=== PATIENT | female | born 1980 | race Caucasian/White ===

== ENCOUNTER 2019-07-05 15:53 | Outpatient (REF) | payer MEDICARE, MEDICAID, SELFPAY ==
--- NOTE | 2019-07-05 14:35 | PAPFT_PTH ---
PATIENT: Birdie Cintron LOC: [facility] U#:[id number] AGE/SX: 38/F ROOM: RE07/05/[address]: Bud Vásquez MD : 1980 BED: DIS: 07/05/2019 SPEC #: [id number] RECD: 07/05/19 17:55 STATUS: FOREIGN REAnson #: [id number] BETO: 07/05/19 14:[address]: Bud Vásquez DEPT: [facility] Cytology RECD BY: Sarah Cortes ENTERED: 07/05/19 17:56 SP TYPE: PAPFT OTHR DR: Marce Rankin Tissues: 1 - CX/ENDOCX FOR PAP SMEARS Procedures: PAP THIN PREP/UVM Screening HPV DNA PROBE Comments: [id number]
== END 2019-07-05 16:13 ==
LOC: LBN 15:53
PROVIDERS: PCP Family Medicine; Visit Provider Obstetrics & Gynecology
DX: Z12.4 Encounter for screening for malignant neoplasm of cervix (principal); Z11.51 Encounter for screening for human papillomavirus (HPV)
CPT/HCPCS: 88142; 87624

== ENCOUNTER 2020-09-07 10:56 | Emergency (ER) | payer MEDICARE, MEDICAID, SELFPAY ==
[2020-09-07] VITALS (14 sets, daily range): BP systolic 140–145; BP diastolic 86–93; PULSE 72–92; RESP 13–22; TEMP 36.6; O2SAT 98–100
--- NOTE | 2020-09-07 11:00 | RT.EKG_ITS ---
APPROVED REPORT Exam: Resting ECG Reason for Exam: right sided chest pain Patient Location: E HR:83 bpm ECG Measurements Heart Rate 83 AXIS ND 176 P 21 QRSd 115 QRS 49 QT 388 T 62 QTc 457 Conclusion Sinus rhythm...normal P axis, V-rate 60- 99 Nonspecific intraventricular conduction delay...QRSd >115mS, not LBBB/RBBB sinus rhythm at 83, normal axis, no STEMI, non-diagnostic EKG
--- NOTE | 2020-09-07 11:00 | DI.CT_ITS ---
Exam(s) CT CHEST PE CTA EXAM: CT CHEST PE CTA CLINICAL HISTORY: Right sided chest pain, R/O PE. TECHNIQUE: Imaging Protocol: CT angiography of the chest was performed using pulmonary embolus sunny col. Multi planar reconstructions were performed. CONTRAST MATERIAL: Intravenous: Omnipaque 350 Contrast volume: 100 cc COMPARISON: CT CHEST WITH CONTRAST from 09/21/2016 FINDINGS: CHEST: Quality of the study is limited by patient's breathing motion and suboptimal bolus timing. PULMONARY ARTERIES: Suboptimal bolus timing inject. No obvious central pulmonary emboli.No pulmonary infarction. LUNGS: There are no infiltrates nor evidence of pulmonary infarction.. There are no pleural effusions . MEDIASTINUM: There is no hilar nor mediastinal adenopathy. Visualized thyroid unremarkable. CARDIAC: Heart size is slightly prominent. There is no pericardial effusioncaliber of the thoracic a ant is within normal limits. There is no significant shift of the interventricular septum. PARTIALLY VISUALIZED UPPERMOST ABDOMEN: No obvious findings OSSEOUS: No significant osseous lesions.. IMPRESSION: 1. Suboptimal study as described above. No obvious central pulmonary emboli. Cannot assess distal p ulmonary arteries on this study..There are no pulmonary infarctions and no pleural effusions evident. 2. No obvious intrathoracic adenopathy. RADIATION DOSE DELIVERED: 766.48mGy.cm Total DLP DATA REPOSITORY: All CT scans at this facility are submitted to the National Radiology Data Registry (NRDR) Dose Index Registry (DIR) with the [employer] (ACR). RADIATION OPTIMIZATION: All CT scans at this facility use at least one of these dose optimization te chniques: automated exposure control; mA and/or kV adjustment per patient size (includes targeted exa ms where dose is matched to clinical indication); or iterative reconstruction.
--- NOTE | 2020-09-07 11:03 | ED.GENADUL_ITS ---
Discharge Plan Disposition Patient Disposition: HOME Condition: Stable Discharge Details Clinical Impression: Chest pain in adult Primary Care Provider: Marce Rankin ED Provider: Joan Mejia Home Meds and New Rx's Prescriptions: No Action gabapentin [Neurontin] 600 MG tablet 1,200 mg PO TID RF: 0 aspirin 81 MG tablet,delayed release (DR/EC) 81 mg PO DAILY RF: 0 amitriptyline 10 MG tablet 10 mg PO HS RF: 0 sertraline [Zoloft] 50 MG tablet 50 mg PO QAM RF: 0 loratadine 10 MG tablet 10 mg PO QAM RF: 0 Discharge Instructions Instructions: Chest Pain (ED) Additional Instructions: Follow up with primary care provider in 3-5 days. Return to ED sooner if any worsening or concerns. Increase oral fluids. Return to the ED for any worsening chest pain, shortness of breath, fever, vomiting or any concerns. Please take Tylenol or Ibuprofen with food every 4-6 hours as needed for pain and swelling. Continue taking baby aspirin daily Referrals: Marce Rankin [Primary Care Provider] - Discharge Data Discharge Date/Time-TO BE ENTERED AT DEPARTURE: 09/07/20 15:12 Medical Decision Making 39-year-old female presents to the ER with chief complaint of right-sided chest pain which began approximately 1 hour prior to arrival. She describes a sharp pain which radiates back to her right shoulder. She states that she was at home getting into bed when she had acute onset of the chest pain. Her caregiver rubbed her back which improved symptoms somewhat. 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 She is a non-smoker denies any drugs. She does take 81 mg chewable aspirin daily. COMPARISON: CT CHEST WITH CONTRAST from 09/21/2016 FINDINGS: CHEST: Quality of the study is limited by patient's breathing motion and suboptimal bolus timing. PULMONARY ARTERIES: Suboptimal bolus timing inject. No obvious central pulmonary emboli.No pulmonary infarction. LUNGS: There are no infiltrates nor evidence of pulmonary infarction.. There are no pleural effusions. MEDIASTINUM: There is no hilar nor mediastinal adenopathy. Visualized thyroid unremarkable. CARDIAC: Heart size is slightly prominent. There is no pericardial effusioncaliber of the thoracic aorta is within normal limits. There is no significant shift of the interventricular septum. PARTIALLY VISUALIZED UPPERMOST ABDOMEN: No obvious findings OSSEOUS: No significant osseous lesions.. IMPRESSION: 1. Suboptimal study as described above. No obvious central pulmonary emboli. Cannot assess distal pulmonary arteries on this study..There are no pulmonary infarctions and no pleural effusions evident. 2. No obvious intrathoracic adenopathy. 1330: Patient reevaluation caregiver is at bedside. Patient is not currently having any chest pain at this time. She does report that she did have 2 episodes of chest pain went over at [facility] when getting up to the bathroom. Discussed lab results repeat troponin and CT results she verbalizes understanding. Serial troponin within normal limits. Patient was given Toradol which improved her symptoms she has not had any episodes of chest pain since. At this time I do suspect largely musculoskeletal in origin. However I did discuss follow-up w ith PCP and continuing to take aspirin daily. Patient remained hemodynamically stable alert and oriented throughout stay. This text was generated using Antidot dictation system, please disregard any oddities of phrase or misspellings. HPI General Mode of arrival: wheelchair . Date/Time Provider Initiated Documentation: 09/07/20 11:00 . Limitations to Documentation: no limitations . Information obtained by: patient . HPI Narrative: 39-year-old female presents to the ER with chief complaint of right-sided chest pain which began approximately 1 hour prior to arrival. She describes a sharp pain which radiates back to her right shoulder. She states that she was at home getting into bed when she had acute onset of the chest pain. Her caregiver rubbed her back which improved symptoms somewhat. 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 She is a non-smoker denies any drugs. She does take 81 mg chewable aspirin daily. Related Data Home Medications Medication Instructions Recorded Confirmed amitriptyline 10 mg PO HS 08/19/16 09/07/20 aspirin 81 mg PO DAILY 08/19/16 09/07/20 gabapentin [Neurontin] 1,200 mg PO TID 08/19/16 09/07/20 loratadine 10 mg PO QAM 08/19/16 09/07/20 sertraline [Zoloft] 50 mg PO QAM 08/19/16 09/07/20 Allergies Allergy/AdvReac Type Severity Reaction Status Date / Time latex Allergy Mild Skin Rash Unverified 09/07/20 11:12 Review of Systems Narrative: Constitutional: Negative for weight loss, alert and oriented, well groomed, body habitus, appears comfortable. HEENT: Denies trauma, headaches, blurry vision, nasal discharge, sore throat, trouble swallowing. Chest: Denies palpitations, irregular rhythm, positive right-sided sharp chest pains radiating into her right shoulder Respiratory: Denies cough, hemoptysis. Reports shortness of breath initially none currently. GI: Denies abdominal pain, nausea, vomiting, diarrhea, constipation. : Denies dysuria, hematuria, flank pain, rectal bleeding. Neuro: Denies dizziness, blurry vision, , syncope, headache or facial numbness. Does have residual right-sided weakness from a previous CVA Hematologic: Denies easy bruising, intolerance to heat or cold, hair loss. [facility] Medical History BMI 45.0-49.9, adult 12/2013 BMI 47 Cerebrovascular accident (CVA) (06/25/16) L sided brain infarct. 2w PP from RCD. R hemiplegia. Enlarged thyroid Family history of breast cancer Hemiplegia Previous section Radicular syndrome of lower limbs Surgical History section PCD [facility]. [place] with [place]. [place] [facility] [place]16[place] [facility] [place] History Smoking/Tobacco Use Status: Never Smoking risk assessment performed?: Yes Alcohol Intake: never Drug use: Never Do you feel safe at home: Yes Do you feel safe in your relationship?: Yes Exam Narrative Exam Narrative: Constitutional: Alert and oriented x3. Appears stated age. Obese body habitus. Head: Normocephalic, no trauma. Eyes: Pupils PERRLA, Red reflex noted, EOM's intact. Eyelids symmetrical without lesions, discharge, or swelling. ENT: Bilateral TM's WNL, External ear normal to inspection, no mastoid TTP, swelling, or erythema, Nasal turbinates WNL, no nasal discharge. Normal dentition, Posterior pharynx WNL, no exudate. Chest: RRR, Normal S1, S2, distal pulses intact. Resp: Lungs clear to auscultation bilaterally, no wheezes, rales, or rhonchi. Musculoskeletal: Right upper and right lower extremity weakness. At the base line for patient Skin: No suspicious rashes or lesions. Capillary refill less than 2 sec. Neurologic: Cranial nerves II-XII intact. Alert and oriented x 3. Hematologic/Lymphatic: No ecchymosis, no lymphadenopathy.
[2020-09-07] MEDS: Aspirin 81 MG CHEW 243 MG CH (11:20)
[2020-09-07 11:53] LABS: Abs Immature Grans 0.03 10^3/uL (0.0-0.06); Absolute Basophil Count 0.04 10^3/uL (0.0-0.2); Absolute Eosinophil Count 0.15 10^3/uL (0.0-0.7); Basophils % 0.4; Eosinophils % 1.6; HCT 43.2 % (36.0-46.0); HGB 13.6 g/dL (11.2-15.7); Immature Grans % 0.3; Lymphocytes % 21.9; MCH 28.6 pg (27.0-33.0); MCHC 31.5 % (32.0-36.0); MCV 90.8 fL (80-95); MPV 10.4 fL (8.0-11.0); Monocytes % 5.5; Neutrophils % 70.3; Nucleated RBC 0 %; Platelet Count 284 10^3/uL (130-400); RBC 4.76 10^6/uL (3.93-5.22); RDW 14.6 % (11.7-14.6); RDW-SD 48.9 fL; WBC 9.12 10^3/uL (4.4-10.8)
[2020-09-07 12:04] LABS: Prothrombin Time 9.7 sec (9.3-11.0)
[2020-09-07 12:07] LABS: ALT 24 U/L (14-59); AST 18 U/L (15-37); Albumin 3.3 g/dL (3.4-5.0); Alkaline Phosphatase 130 U/L (46-116); Anion Gap 7.6 mmol/L (3-11); BUN 14 mg/dL (7-18); Bilirubin, Total 0.3 mg/dL (0.2-1.0); CO2 31.4 mmol/L (21.0-32.0); CREATININE 0.8 mg/dL (0.55-1.02); Calcium 8.9 mg/dL (8.5-10.1); Chloride 104 mmol/L (98-107); Glucose 102 mg/dL (74-106); Magnesium 2.1 mg/dL (1.8-2.4); Potassium 3.6 mmol/L (3.5-5.1); Sodium 143 mmol/L (136-145); Total Protein 7.7 g/dL (6.4-8.2)
[2020-09-07 12:08] LABS: Troponin I < 0.05 ng/mL (<0.06)
[2020-09-07] MEDS: Omnipaque 350 MG/ML 100 ML BTL IV (13:05)
[2020-09-07] MEDS: Normal Saline - Diluent 50 ML VIAL IV (13:06)
[2020-09-07] MEDS: Ketorolac 30 MG/ML VIAL IVP (13:53)
[2020-09-07 14:59] LABS: Troponin I < 0.05 ng/mL (<0.06)
== END 2020-09-07 15:12 | disposition home or self-care (01) ==
PROVIDERS: Emergency Provider Registered Nurse Emergency; PCP Family Medicine
DX: R07.9 Chest pain, unspecified (principal)
CPT/HCPCS: 71275; 80053; 93005; 96374; 99285; 83735; 84484; 85025; 85610; 93010; 99283; J1885; J3490

== ENCOUNTER 2021-01-06 15:03 | Outpatient (REF) | payer MEDICARE, MEDICAID, SELFPAY ==
[2021-01-06 22:19] LABS: HCT 43.2 % (36.0-46.0); HGB 13.7 g/dL (11.2-15.7); MCH 28.8 pg (27.0-33.0); MCHC 31.7 % (32.0-36.0); MCV 90.9 fL (80-95); MPV 11.4 fL (8.0-11.0); Platelet Count 306 10^3/uL (130-400); RBC 4.75 10^6/uL (3.93-5.22); RDW 14.5 % (11.7-14.6); WBC 7.49 10^3/uL (4.4-10.8)
[2021-01-06 22:42] LABS: ALT 24 U/L (14-59); AST 15 U/L (15-37); Albumin 3.6 g/dL (3.4-5.0); Alkaline Phosphatase 133 U/L (46-116); Anion Gap 8.1 mmol/L (3-11); BUN 13 mg/dL (7-18); Bilirubin, Total 0.3 mg/dL (0.2-1.0); CO2 29.9 mmol/L (21.0-32.0); CREATININE 0.9 mg/dL (0.55-1.02); Calcium 9.3 mg/dL (8.5-10.1); Chloride 103 mmol/L (98-107); Glucose 93 mg/dL (74-106); Potassium 3.9 mmol/L (3.5-5.1); Sodium 141 mmol/L (136-145); TSH (W/Ref FT4) 2.05 uIU/mL (0.36-3.74); Total Protein 7.4 g/dL (6.4-8.2)
[2021-01-07 01:34] LABS: Vitamin D 25 Total 22.5 ng/mL (30-100)
[2021-01-07 12:28] LABS: GGT 26 U/L (5-55)
== END 2021-01-06 15:04 | disposition home or self-care (01) ==
LOC: NCHCN 15:03
PROVIDERS: PCP Family Medicine; Visit Provider Family Medicine
DX: R74.8 Abnormal levels of other serum enzymes (principal); R53.83 Other fatigue; G81.01 Flaccid hemiplegia affecting right dominant side; E55.9 Vitamin D deficiency, unspecified
CPT/HCPCS: 80053; 82306; 85027; 82977; 84443

== ENCOUNTER 2021-03-23 14:41 | Outpatient (REF) | payer MEDICARE, MEDICAID, SELFPAY ==
[2021-03-23 16:05] LABS: Alkaline Phosphatase 122 U/L (46-116)
[2021-03-25 01:57] LABS: Vitamin D 25 Total 25.7 ng/mL (30-100)
== END 2021-03-23 14:42 | disposition home or self-care (01) ==
LOC: NCHCN 14:41
PROVIDERS: PCP Family Medicine; Visit Provider Family Medicine
DX: E55.9 Vitamin D deficiency, unspecified (principal); R74.8 Abnormal levels of other serum enzymes
CPT/HCPCS: 82306; 84075

== ENCOUNTER 2021-07-08 02:26 | Outpatient (CLI) | payer MEDICARE, MEDICAID, SELFPAY ==
[2021-07-08 11:49] LABS: TSH (W/Ref FT4) 2.88 uIU/mL (0.36-3.74)
== END 2021-07-08 02:27 | disposition home or self-care (01) ==
LOC: LBO 02:27
PROVIDERS: PCP Family Medicine; Visit Provider Obstetrics & Gynecology
DX: N93.8 Other specified abnormal uterine and vaginal bleeding (principal); R53.83 Other fatigue
CPT/HCPCS: 36415; 84443

== ENCOUNTER 2021-07-23 02:11 | Outpatient (CLI) | payer MEDICARE, MEDICAID, SELFPAY ==
--- NOTE | 2021-07-23 07:30 | DI.US_ITS ---
Exam(s) US PELVIS TRANSVAGINAL EXAM: US PELVIS TRANSVAGINAL CLINICAL HISTORY: evaluate stripe and anatomy,DYSFUNCTIONAL UTERINE BLEEDING,N93.8. TECHNIQUE: Transabdominal and transvaginal pelvic ultrasound was performed using standard protocol. COMPARISON: US PELVIS TRANSVAG from 09/21/2016 FINDINGS: KIDNEYS: Kidneys are symmetric in size. No evidence of renal calculi. No evidence of hydronephrosis. No renal mass or cyst identified. UTERUS: Position: Anteverted. Size: 10.5 long by 5.4 AP by 6.9 transverse cm Endometrium: The endometrial stripe is difficult to evaluate due to patient body habitus. It appears to be thickened at 2.5 cm. There is also a 1.6 x 1.2 x 1.9 cm hypoechoic area within the endometriu m. Myometrium: Unremarkable. Cervix: Cervical nabothian cysts are present. OVARIES: The right ovary was not visualized transabdominally or transvaginally. No right adnexal mas s is seen. The left ovary was only seen transabdominally. Left: 3.4 x 2.3 x 3.2 cm Cyst or mass: There is a 2.8 x 2.2 x 3 cm simple functional left ovarian cyst. CUL-DE-SAC: Free fluid: None. Other: None. IMPRESSION: 1. Examination limited by patient body habitus. The right ovary was not visualized transabdominally or transvaginally. The left ovary was only visualized transabdominally. 2. Apparent thickening of the endometrial stripe at 2.5 cm. Question of an endometrial mass measurin g 1.6 x 1.2 x 1.9 cm. MRI of the pelvis without and with contrast should be considered for further e valuation. 3. 2.8 x 2.2 x 3 cm simple left ovarian cyst. DATA REPOSITORY:
== END 2021-07-23 02:31 ==
PROVIDERS: PCP Family Medicine; Visit Provider Obstetrics & Gynecology
DX: N93.8 Other specified abnormal uterine and vaginal bleeding (principal); N83.02 Follicular cyst of left ovary; R93.41 Abnormal radiologic findings on diagnostic imaging of renal pelvis, ureter, or bladder
CPT/HCPCS: 76830; 76856

== ENCOUNTER 2021-08-05 15:47 | Outpatient (REF) | payer MEDICARE, MEDICAID, SELFPAY ==
--- NOTE | 2021-08-05 14:25 | PAPFT_PTH ---
PATIENT: Birdie Cintron LOC: N U#:[id number] AGE/SX: 40/F ROOM: RE08/05/[address]: Pat Cohen DO : 1980 BED: DIS: 08/05/2021 SPEC #: [id number] RECD: 08/05/21 17:40 STATUS: FOREIGN REQ #: [id number] BETO: 08/05/21 14:[address]: Pat Cohen DEPT: [facility] Cytology RECD BY: Sarah Cortes ENTERED: 08/05/21 17:40 SP TYPE: PAPFT OTHR DR: Marce Rankin Tissues: 1 - CX/ENDOCX FOR PAP SMEARS Procedures: PAP THIN PREP/UVM Screening Comments: [id number]
--- NOTE | 2021-08-05 14:30 | ENDOMET_PTH ---
PATIENT: Birdie Cintron LOC: [facility] U#:[id number] AGE/SX: 40/F ROOM: RE08/05/[address]: Pat Cohen DO : 1980 BED: DIS: 08/05/2021 SPEC #: [id number] RECD: 08/05/21 16:37 STATUS: FOREIGN REQ #: [id number] BETO: 08/05/21 14:[address]: Pat Cohen DEPT: Surgical Specimen RECD BY: Sarah Cortes ENTERED: 08/05/21 16:37 SP TYPE: Endomet OTHR DR: Marce Rankin Tissues: 1 - ENDOMETRIUM BX/JIA Procedures: GROSS AND MICRO LEVEL 4 Comments: [id number]
== END 2021-08-05 15:48 | disposition home or self-care (01) ==
LOC: LBN 15:47
PROVIDERS: PCP Family Medicine; Visit Provider Obstetrics & Gynecology
DX: Z12.4 Encounter for screening for malignant neoplasm of cervix (principal); N85.8 Other specified noninflammatory disorders of uterus
CPT/HCPCS: 88142; 88305

== ENCOUNTER 2022-05-15 06:35 | Emergency (ER) | payer MEDICARE, MEDICAID, SELFPAY ==
--- NOTE | 2022-05-15 06:30 | RT.EKG_ITS ---
APPROVED REPORT Exam: Resting ECG Reason for Exam: chest pain Patient Location: E HR:86 bpm ECG Measurements Heart Rate 86 AXIS AK 177 P 42 QRSd 99 QRS 38 QT 369 T 53 QTc 442 Conclusion Sinus rhythm...normal P axis, V-rate 60- 99 Low voltage, extremity leads...all extremity leads <0.5mV PHysician: no stemi
[2022-05-15 06:41] VITALS: BP 122/76; PULSE 99; RESP 20; TEMP 36.7; O2SAT 99
--- NOTE | 2022-05-15 06:45 | DI.CT_ITS ---
Exam(s) CT CHEST/ABD/PEL W EXAM: CT CHEST/ABD/PEL W CLINICAL HISTORY: ruq pain, eval for cholecystitis TECHNIQUE: Imaging Protocol: Axial computed tomography images with coronal and sagittal reformatted images were created and reviewed CONTRAST MATERIAL: Intravenous: Omnipaque 350 contrast volume:125 mL Oral: No COMPARISON: CT CT CHEST PE CTA from 09/07/2020 FINDINGS: The examination is limited due to patient motion artifact. CHEST: Tracheobronchial tree: Patent where visualized. Pulmonary parenchyma: No consolidation or dominant measurable mass. No architectural distortion. Visualized thyroid gland: Unremarkable. Mediastinum and Jihan: No dominant adenopathy or fluid collection. The esophagus is unremarkable. Pleura: No effusion or pneumothorax. Heart: The heart is not dilated. No coronary artery calcifications are seen. No pericardial effusion. Pulmonary arteries: Due to the timing of the bolus, pulmonary artery opacification is inadequate for evaluation of pulmonary emboli. Aorta: Thoracic aorta non-dilated. Lymph nodes: Within normal limits. Soft tissues: Unremarkable. Bones:Within normal limits for the patient's age. ABDOMEN: Liver: Normal density. No measurable mass. Portal, Superior Mesenteric, and Splenic Veins: Unremarkable. Gallbladder and Biliary Tract: No radiodense calculus or dilation. Pancreas: Normal density, no abnormal calcifications or inflammatory process. Spleen: Normal. Adrenals: No masses seen. Kidneys: Normal size, contour and axis. No radiodense stones or obstructive uropathy. No masses seen. Abdominal Aorta: Abdominal portion non-dilated. Bowel: No obstruction or bowel wall thickening. Appendix is unremarkable. Peritoneal Cavity: No ascites, collection or mesenteric inflammatory response. No free air. Lymph Nodes: Within normal limits. Bones: Within normal limits for the patient's age. Soft Tissues: There is a small fat containing umbilical hernia. PELVIS: Bladder: Symmetric distention, no gross wall thickening. Reproductive Organs: There is an IUD which appears in good position. Lymph Nodes: Within normal limits. Bones: Within normal limits. IMPRESSION: 1. No acute pulmonary process. 2. No acute abdominal or pelvic process. RADIATION DOSE DELIVERED: 2,848.13mGy.cm Total DLP DATA REPOSITORY: All CT scans at this facility are submitted to the National Radiology Data Registry (NRDR) Dose Index Registry (DIR) with the [employer] (ACR). RADIATION OPTIMIZATION: All CT scans at this facility use at least one of these dose optimization te chniques: automated exposure control; mA and/or kV adjustment per patient size (includes targeted exa ms where dose is matched to clinical indication); or iterative reconstruction.
--- NOTE | 2022-05-15 06:54 | W.ED.GENAD ---
Discharge Plan Discharge Details Chief Complaint: Chest Pain Clinical Impression: Right upper quadrant abdominal pain Primary Care Provider: Marce Rankin ED Provider: Petar Stoll Home Meds and New Rx's Prescriptions: No Action lisinopril 10 mg tablet 10 mg PO DAILY gabapentin [Neurontin] 600 MG tablet 1,200 mg PO TID aspirin 81 MG tablet,delayed release (DR/EC) 81 mg PO DAILY amitriptyline 10 MG tablet 10 mg PO HS sertraline [Zoloft] 50 MG tablet 50 mg PO QAM loratadine 10 MG tablet 10 mg PO QAM Medical Decision Making This is a 41-year-old female with a past medical history of a BMI of 59, previous cerebrovascular accident in 2017 on chronic aspirin, with chronic right-sided deficits, who presents today for evaluation of right upper quadrant abdominal pain and chest pain. Patient states that the pain has been intermittent for the last 2 to 3 days. It comes and goes and seems to be worsened with food. She denies any upper chest pain, shortness of breath or chest heaviness. She denies any difficulty breathing. No exertional dyspnea or exertional chest pain. Pain is made worse after meals. She does admit to 1 or 2 episodes of vomiting. She denies any new numbness tingling or weakness. No hematemesis. No diarrhea. No other complaints at this time. No personal history of cardiac disease. Physical exam demonstrates notable right upper quadrant abdominal tenderness, mild generalized abdominal tenderness, mild right lower chest wall tenderness. Differential is highest for gallbladder pathology and acute cholecystitis. Less likely is cardiac etiology. EKG shows no evidence of STEMI. We will get a CT scan, treat the patient's pain, rehydrate, evaluate for concerning etiologies, monitor closely and reassess. Patient will be signed out to my colleague Dr. Arben Duran for follow-up on labs and imaging HPI General Date/Time Provider Initiated Documentation: 05/15/22 06:52. HPI Narrative: This is a 41-year-old female with a past medical history of a BMI of 59, previous cerebrovascular accident in 2017 on chronic aspirin, with chronic right-sided deficits, who presents today for evaluation of right upper quadrant abdominal pain and chest pain. Patient states that the pain has been intermittent for the last 2 to 3 days. It comes and goes and seems to be worsened with food. She denies any upper chest pain, shortness of breath or chest heaviness. She denies any difficulty breathing. No exertional dyspnea or exertional chest pain. Pain is made worse after meals. She does admit to 1 or 2 episodes of vomiting. She denies any new numbness tingling or weakness. No hematemesis. No diarrhea. No other complaints at this time. No personal history of cardiac disease. Related Data Home Medications Medication Instructions Recorded Confirmed amitriptyline 10 mg tablet 10 mg PO HS 08/19/16 05/15/22 aspirin 81 mg tablet,delayed 81 mg PO DAILY 08/19/16 05/15/22 release gabapentin 600 mg tablet 1,200 mg PO TID 08/19/16 05/15/22 (Neurontin) loratadine 10 mg tablet 10 mg PO QAM 08/19/16 05/15/22 sertraline 50 mg tablet (Zoloft) 50 mg PO QAM 08/19/16 05/15/22 lisinopril 10 mg tablet 10 mg PO DAILY 08/05/21 05/15/22 Allergies Allergy/AdvReac Type Severity Reaction Status Date / Time latex Allergy Mild Skin Rash Verified 05/15/22 07:32 General Stated Complaint: Chest Pain MIL[place]RO: 3 Review of Systems All systems reviewed & are unremarkable except as noted in HPI and below PFSH All Active Problems (Updated 05/15/22 @ 07:34 by Petar Stoll DO) Right upper quadrant abdominal pain (Acute) Thickened endometrium (Acute) DUB (dysfunctional uterine bleeding) (Acute) Chest pain in adult (Acute) Abnormal Pap smear of cervix (Acute) BMI 50.0-59.9, adult (Acute 11/10/15) Left-sided cerebrovascular accident (CVA) (Acute 06/25/16) 10d s/p RCD. L sided CVA with R sided hemiparesis. Uses cane to walk. R Hand and forearm not functioning. Medical History BMI 45.0-49.9, adult 12/2013 BMI 47 Cerebrovascular accident (CVA) (06/25/16) L sided brain infarct. 2w PP from RCD. R hemiplegia. Enlarged thyroid Family history of breast cancer Hemiplegia Previous section Radicular syndrome of lower limbs Surgical History section PCD [facility]. [place]/S with [place]. [place] [facility] [place]16[place] [facility] [place] Social History Smoking/Tobacco Use Status: Never Smoking risk assessment performed?: Yes Alcohol Intake: never Drug use: Never Do you feel safe at home: Yes Do you feel safe in your relationship?: Yes Exam Narrative Exam Narrative: 1.Const: Well-nourished, Well-developed, appearing stated age 2.Eyes: PERRL, no conjunctival injection, and symmetrical lids. 3.ENT: Atraumatic external nose and ears. Moist MM. Neck: Symmetric, trachea midline, No thyromegaly. 4.CVS: +S1/S2, No murmurs or gallops. Peripheral pulses 2+ and equal in all extremities. Brisk capillary refill in all extremities. 5.RESP: Unlabored respiratory effort. Clear to auscultation bilaterally. No wheezes rales or rhonchi 6.GI: Soft, nondistended, notable tenderness in the right upper quadrant on light palpation. Mild generalized tenderness throughout. No rash under the right breast. Minimal lower chest wall tenderness. 7.MSK: Normocephalic/Atraumatic, Extremities w/o deformity or ttp No cyanosis or clubbing, chronic weakness of the right upper and right lower extremity. 8.Skin: Warm, Dry. No rashes or lesions. 9.Neuro: punch card operator II-XII grossly intact. Sensation grossly intact, no focal neurologic deficits. 10.Psych: (AAO) x3. Appropriate mood and affect Course Vital Signs Vital signs: Vital Signs Temperature 36.7 C 05/15/22 06:41 Pulse 99 H 05/15/22 06:41 Respiratory Rate 20 05/15/22 06:41 Blood Pressure 122/76 05/15/22 06:41 Pulse Oximetry 99 05/15/22 06:41 Temperature 36.7 C 05/15/22 06:41 Temperature Source Tympanic 05/15/22 06:41 Pulse 99 H 05/15/22 06:41 Respiratory Rate 20 05/15/22 06:41 Respiratory Effort 01/15/23 06:47 Blood Pressure 122/76 05/15/22 06:41 Blood Pressure Position Sitting 05/15/22 06:41 Pulse Oximetry 99 05/15/22 06:41 Oxygen Delivery Method Room Air 05/15/22 06:41 Oxygen Flow Rate 0 05/15/22 06:41 Pain Level 9 05/15/22 06:41
[2022-05-15] MEDS: Normal Saline 500 ML IV (07:32)
[2022-05-15] MEDS: MORPHine 4 MG/ML SYR IVP (07:32)
[2022-05-15] MEDS: Ketorolac 15 MG/ML VIAL IVP (07:33)
[2022-05-15 07:39] VITALS: BP 121/77; PULSE 89; RESP 16; O2SAT 96
[2022-05-15 07:49] LABS: Lactate 1.6 mmol/L (0.6-1.4)
[2022-05-15 07:53] LABS: Abs Immature Grans 0.02 10^3/uL (0.0-0.06); Absolute Basophil Count 0.04 10^3/uL (0.0-0.2); Absolute Eosinophil Count 0.08 10^3/uL (0.0-0.7); Absolute Lymphocyte Count 1.84 10^3/uL (1.2-3.4); Absolute Monocyte Count 0.72 10^3/uL (0.1-0.8); Absolute Neutrophil Count 5.82 10^3/uL (1.2-6.7); Basophils % 0.5; Eosinophils % 0.9; HCT 39.5 % (36.0-46.0); HGB 12.6 g/dL (11.2-15.7); Immature Grans % 0.2; Lymphocytes % 21.6; MCH 28.5 pg (27.0-33.0); MCHC 31.9 % (32.0-36.0); MCV 89 fL (80-95); MPV 10.4 fL (8.0-11.0); Monocytes % 8.5; Neutrophils % 68.3; Platelet Count 281 10^3/uL (130-400); RBC 4.42 10^6/uL (3.93-5.22); RDW 15.3 % (11.7-14.6); WBC 8.52 10^3/uL (4.4-10.8)
[2022-05-15 08:14] LABS: ALT 219 U/L (14-59); AST 271 U/L (15-37); Albumin 3.4 g/dL (3.4-5.0); Alkaline Phosphatase 254 U/L (46-116); Anion Gap 7.4 mmol/L (3-11); BUN 16 mg/dL (7-18); Bilirubin, Total 1.3 mg/dL (0.2-1.0); CO2 27.6 mmol/L (21.0-32.0); CREATININE 0.9 mg/dL (0.55-1.02); Calcium 8.8 mg/dL (8.5-10.1); Chloride 106 mmol/L (98-107); Estimated GFR 82.37 (mL/min/1.73m2); Glucose 107 mg/dL (74-106); Lipase 79 U/L (73-393); Potassium 4.3 mmol/L (3.5-5.1); Sodium 141 mmol/L (136-145); Total Protein 7.5 g/dL (6.4-8.2); Troponin I < 50 ng/L (<or=60)
[2022-05-15 08:16] LABS: HCG Quant, Pregnancy 1 mIU/mL (1-3)
[2022-05-15] MEDS: Omnipaque 350 MG/ML 100 ML BTL IJ (09:01)
[2022-05-15] MEDS: Normal Saline - Diluent 50 ML VIAL IJ (09:02)
[2022-05-15 09:14] VITALS: BP 128/76; PULSE 72; TEMP 36.3; O2SAT 100
--- NOTE | 2022-05-15 09:17 | DI.VRAD_ITS ---
PROCEDURE INFORMATION: Exam: CT Chest With Contrast; Diagnostic Exam date and time: 05/15/2022 8:33 AM Age: 41 years old Clinical indication: Pain; Other: Ruq; Right-sided TECHNIQUE: Imaging protocol: Diagnostic computed tomography of the chest with contrast. COMPARISON: CT ABD PELVIS WO CONTRAST 08/19/2016 4:47 PM FINDINGS: Lungs: Bibasilar atelectasis Pleural spaces: Unremarkable. No pneumothorax. No pleural effusion. Heart: Unremarkable. No cardiomegaly. No pericardial effusion. Lymph nodes: Unremarkable. No enlarged lymph nodes. Vasculature: Unremarkable. No aortic aneurysm. Bones/joints: Unremarkable. No acute fracture. Soft tissues: Unremarkable. IMPRESSION: No acute process PROCEDURE INFORMATION: Exam: CT Abdomen And Pelvis With Contrast Exam date and time: 05/15/2022 8:33 AM Age: 41 years old Clinical indication: Pain; Other: Ruq; Right-sided TECHNIQUE: Imaging protocol: Computed tomography of the abdomen and pelvis with contrast. COMPARISON: CT ABD PELVIS WO CONTRAST 08/19/2016 4:47 PM FINDINGS: Liver: Normal. No mass. Gallbladder and bile ducts: Normal. No calcified stones. No ductal dilation. Pancreas: Normal. No ductal dilation. Spleen: Normal. No splenomegaly. Adrenal glands: Normal. No mass. Kidneys and ureters: Normal. No hydronephrosis. Stomach and bowel: Unremarkable. No obstruction. No mucosal thickening. Appendix: No evidence of appendicitis. Intraperitoneal space: Unremarkable. No free air. No significant fluid collection. Vasculature: Unremarkable. No abdominal aortic aneurysm. Lymph nodes: Unremarkable. No enlarged lymph nodes. Urinary bladder: Unremarkable as visualized. Reproductive: IUD in the uterus in good position Bones/joints: Unremarkable. No acute fracture. Soft tissues: Umbilical hernia contains fat Other findings: Motion artifact degrades some of the images IMPRESSION: No acute process Dictated and Authenticated by: Grisel Bernal MD. Ordering:JOSEE Davey MD
[2022-05-15 09:50] LABS: Bilirubin Moderate (Negative); Blood Large (Negative); Clarity Turbid (Clear); Glucose Negative (Negative); Ketones Negative (Negative); Leukocyte Esterase Negative (Negative); Nitrite Negative (Negative); Specific Gravity 1.015 (1.005-1.025); Urobilinogen >=8.0 EU/dL (Up TO 0.2); pH >= 9.0 (5-8)
[2022-05-15 09:54] LABS: C & S Indicated? No; RBC >50 HPF (0-2)
[2022-05-15 10:16] VITALS: BP 131/79; PULSE 72; RESP 13; O2SAT 98
[2022-05-15 10:24] LABS: Troponin I < 50 ng/L (<or=60)
[2022-05-15 10:52] VITALS: BP 123/76; PULSE 76; RESP 16; O2SAT 98
== END 2022-05-15 11:01 | disposition home or self-care (01) ==
PROVIDERS: Student in an Organized Health Care Education/Training Program; Emergency Provider Emergency Medicine; PCP Family Medicine
DX: R10.11 Right upper quadrant pain (principal); R07.9 Chest pain, unspecified; R10.811 Right upper quadrant abdominal tenderness; R74.01 Elevation of levels of liver transaminase levels; R11.10 Vomiting, unspecified; Z86.73 Personal history of transient ischemic attack (TIA), and cerebral infarction without residual deficits; Z79.82 Long term (current) use of aspirin
CPT/HCPCS: 74177; 80053; 83690; 93005; 96361; 96374; 96375; 99285; 71260; 81003; 81015; 83605; 84484; 84702; 85025; 93010; J1885; J2270; J3490

== ENCOUNTER 2022-05-25 18:09 | Outpatient (REF) | payer MEDICARE, MEDICAID, SELFPAY ==
[2022-05-25 15:59] LABS: Abs Immature Grans 0.03 10^3/uL (0.0-0.06); Absolute Basophil Count 0.05 10^3/uL (0.0-0.2); Absolute Eosinophil Count 0.18 10^3/uL (0.0-0.7); Absolute Lymphocyte Count 2.24 10^3/uL (1.2-3.4); Absolute Neutrophil Count 4.93 10^3/uL (1.2-6.7); Basophils % 0.6; Eosinophils % 2.3; HGB 12.8 g/dL (11.2-15.7); Immature Grans % 0.4; Lymphocytes % 28.2; MCH 28.1 pg (27.0-33.0); MCHC 31.2 % (32.0-36.0); MCV 90 fL (80-95); MPV 11.8 fL (8.0-11.0); Monocytes % 6.3; Neutrophils % 62.2; Platelet Count 316 10^3/uL (130-400); RBC 4.56 10^6/uL (3.93-5.22); RDW 14.6 % (11.7-14.6); RDW-SD 48.9 fL; WBC 7.93 10^3/uL (4.4-10.8)
[2022-05-25 16:20] LABS: ALT 43 U/L (14-59); AST 17 U/L (15-37); Albumin 3.7 g/dL (3.4-5.0); Alkaline Phosphatase 165 U/L (46-116); BUN 16 mg/dL (7-18); Bilirubin, Total 0.3 mg/dL (0.2-1.0); CREATININE 0.8 mg/dL (0.55-1.02); Calcium 9.4 mg/dL (8.5-10.1); Chloride 101 mmol/L (98-107); Estimated GFR 94.87 (mL/min/1.73m2); Glucose 97 mg/dL (74-106); Potassium 4.6 mmol/L (3.5-5.1); Sodium 138 mmol/L (136-145); Total Protein 7.4 g/dL (6.4-8.2)
[2022-05-25 16:43] LABS: Lipase 120 U/L (73-393)
== END 2022-05-25 18:10 | disposition home or self-care (01) ==
LOC: NCHCN 18:09
PROVIDERS: PCP Family Medicine; Visit Provider Family Medicine
DX: R10.11 Right upper quadrant pain (principal)
CPT/HCPCS: 80053; 83690; 85025

== ENCOUNTER 2022-06-01 02:46 | Outpatient (CLI) | payer MEDICARE, MEDICAID, SELFPAY ==
--- NOTE | 2022-06-01 | DI.US_ITS ---
Exam(s) US ABDOMEN LIMITED EXAM: US ABDOMEN LIMITED CLINICAL HISTORY: RUQ ABD PAIN, R10.11 TECHNIQUE: Ultrasound abdomen performed using standard protocol. COMPARISON: CT CT CHEST PE CTA from 09/07/[address] CHEST/ABD/PEL W from 05/15/2022 FINDINGS: Exam is limited by patient body habitus. LIVER: Grossly normal size and echogenicity. GALLBLADDER: Full of stones with little surrounding fluid.. The amount of shadowing obscures visuali zation of the gallbladder wall. No pericholecystic fluid identified. BILIARY SYSTEM: No intrahepatic or extrahepatic biliary ductal dilation. Right kidney: No evidence of renal calculi. No evidence of hydronephrosis. No renal mass or cyst iden tified. PANCREAS: Normal where visualized. Tail not visualized ABDOMINAL AORTA AND IVC: Visualized portions normal caliber. ASCITES: None seen. IMPRESSION: Cholelithiasis. The gallbladder is full of stones. DATA REPOSITORY:
== END 2022-06-01 03:06 ==
PROVIDERS: PCP Family Medicine; Visit Provider Family Medicine
DX: R10.11 Right upper quadrant pain (principal); K80.20 Calculus of gallbladder without cholecystitis without obstruction
CPT/HCPCS: 76705

== ENCOUNTER 2023-01-06 12:22 | Outpatient (REF) | payer MEDICARE, MEDICAID, SELFPAY ==
--- NOTE | 2023-01-06 11:10 | SKI_PTH ---
PATIENT: Birdie Cintron LOC: [facility] U#:[id number] AGE/SX: 42/F ROOM: RE01/06/[address]: MIREYA Aguilar : 1980 BED: DIS: 01/06/2023 SPEC #: [id number] RECD: 01/06/23 16:55 STATUS: FOREIGN REAnson #: [id number] BETO: 01/06/23 11:[address]: Derek Toledo DEPT: Surgical Specimen RECD BY: Sarah Cortes ENTERED: 01/06/23 16:56 SP TYPE: SADI CUEVAS DR: Marce Rankin Tissues: 1 - SKIN BIOPSY(SHAVE/PUNCH) 2 - SKIN BIOPSY(SHAVE/PUNCH) Procedures: SKIN LEVEL 4 Comments: [id number]
== END 2023-01-06 12:23 | disposition home or self-care (01) ==
LOC: LBN 12:22
PROVIDERS: PCP Family Medicine; Visit Provider Physician Assistant
DX: D49.2 Neoplasm of unspecified behavior of bone, soft tissue, and skin (principal); C44.91 Basal cell carcinoma of skin, unspecified; I78.1 Nevus, non-neoplastic
CPT/HCPCS: 88305

== ENCOUNTER 2023-06-18 19:15 | Emergency (ER) | payer MEDICARE, MEDICAID, SELFPAY ==
[2023-06-18] VITALS (17 sets, daily range): BP systolic 128–155; BP diastolic 63–99; PULSE 64–91; RESP 11–20; TEMP 36.9; O2SAT 74–100
--- NOTE | 2023-06-18 19:56 | ED.GENADUL_ITS ---
HPI General Date/Time Provider Initiated Documentation: 06/18/23 19:27 . HPI Narrative: 42 year-old female presents to ED today by POV/ambulating with her family with a chief complaint of R sided chest/breast pain with onset a couple hours ago while eating dinner, states almost immediate pain when eating, has known gallstones. Quality described as sharp pain, no radiation to diaphoresis, nausea/vomiting, shortness of breath, denies overt chest pain, denies dizziness/near syncope/visual changes. Severity is described as 6/10. Palliating factors include nothing specific. Provoking factors include nothing specific. Patient not anticoagulated. Related Data Home Medications Medication Instructions Recorded Confirmed amitriptyline 10 mg tablet 10 mg PO HS 08/19/16 06/18/23 aspirin 81 mg tablet,delayed 81 mg PO DAILY 08/19/16 06/18/23 release gabapentin 600 mg tablet 1,200 mg PO TID 08/19/16 06/18/23 (Neurontin) loratadine 10 mg tablet 10 mg PO QAM 08/19/16 06/18/23 sertraline 50 mg tablet (Zoloft) 50 mg PO QAM 08/19/16 06/18/23 lisinopril 10 mg tablet 10 mg PO DAILY 08/05/21 06/18/23 cetirizine 10 mg tablet 10 mg PO DAILY PRN 11/25/22 06/18/23 ergocalciferol (vitamin D2) 1,250 1,250 mcg PO .Q 2WEEK 11/25/22 06/18/23 mcg (50,000 unit) capsule fluoxetine 40 mg capsule 40 mg PO DAILY 11/25/22 06/18/23 lidocaine 5 % topical patch 1 patch topical DAILY 11/25/22 06/18/23 (Lidoderm) naproxen 500 mg tablet 500 mg PO BID 11/25/22 06/18/23 Allergies Allergy/AdvReac Type Severity Reaction Status Date / Time morphine Allergy Intermediate Skin Rash Verified 06/18/23 20:02 latex Allergy Mild Skin Rash Verified 06/18/23 20:02 General Stated Complaint: Chest/Rib MILAGRO: 4 Review of Systems All systems reviewed & are unremarkable except as noted in HPI and below Exam Narrative Exam Narrative: GENERAL APPEARANCE: Well-nourished, non-toxic, awake and alert, atraumatic, no acute distress. SKIN: Warm, pink, dry, intact, without rashes/lesions/ulcerations. HEAD: Normocephalic, atraumatic, normal hair distribution for gender/age. EYES: Pupils PERRLA, EOMs intact without nystagmus, normal conjunctiva, no exudates on lids/lashes. ENT: Nares patent, no circumoral cyanosis, no facial swelling NECK: Supple, trachea midline, painless cervical ROM. LUNGS/CHEST: Lungs CTA bilaterally- no rhonchi/rales/wheezes diffusely, non- labored respirations, normal A/P diameter, symmetrical expansion, no chest wall deformity, TTP in R mid-ribs at mid-clavicular line HEART (CV/PV): Regular rate and rhythm without murmur, no peripheral edema, no JVD. ABDOMEN: Soft, non-distended, no guarding, no tenderness, negative Siddiqi's sign. MSK: Normal ROM, no swelling/deformity to bilateral UEs or LEs, moving all extremities without weakness, no cyanosis, spine midline without tenderness, normal curvature. NEURO: Mental Status AAOx4 - alert to person, place, time, events No facial droop, no forehead involvement. Motor: No focal weakness - strength 5/5 in bilateral UEs and LEs, proximal and distal, symmetric. Sensory: sensation intact to light touch globally. Gait normal: patient ambulated without ataxia into ED room. PSYCH: euthymic, cooperative, pleasant, appropriate speech Course Vital Signs Vital signs: Vital Signs Temperature 36.9 C 06/18/23 19:21 Pulse 91 H 06/18/23 19:21 Respiratory Rate 14 06/18/23 19:21 Blood Pressure 155/99 H 06/18/23 19:21 Pulse Oximetry 99 06/18/23 19:21 Temperature 36.9 C 06/18/23 19:21 Temperature Source Temporal Artery Scan 06/18/23 19:21 Pulse 91 H 06/18/23 19:21 Respiratory Rate 14 06/18/23 19:21 Blood Pressure 155/99 H 06/18/23 19:21 Blood Pressure Position Sitting 06/18/23 19:21 Pulse Oximetry 99 06/18/23 19:21 Oxygen Delivery Method Room Air 06/18/23 19:21 Oxygen Flow Rate 0 06/18/23 19:21 Pain Level 6 06/18/23 19:21 Medical Decision Making This dictation utilizes [id number] dictation software and may contain unedited grammatical errors. 42 y/o F presents to ED today with a chief complaint of R sided rib pain, immediate after eating, denies nausea/vomiting, has known gallstones. Patient has no abdominal pain, denies known cardiac disease, denies fever, denies sweating with onset, denies shortness of breath. Patients' medical history: Headache, anxiety, history of CVA, obstructive sleep apnea, cholelithiasis, morbid obesity. Pertinent exam findings / vital signs include tenderness in the right midclavicular middle ribs, negative Siddiqi's, no respiratory distress, nontoxic presentation overall. Differential / pathologies of concern include PE, costochondritis, ACS, biliary colic, gastritis. Diagnostic studies of: -CBC, CMP, lactate, lipase, UA, magnesium, troponin, BNP, D-dimer, CT abdomen pelvis with contrast, CTA thorax PE study. -Mildly elevated dimer above age-adjusted limit, history of CVA makes it reasonable to perform study even though it is years criteria negative -No evidence of right heart strain with negative troponin and BNP, delta troponin negative -No elevation of lactate or lipase, CBC benign -Mildly low magnesium which corrected with normal intake, liver enzymes improved from previous -CRP mildly increased to 2.45 -Trace leuk esterase and urine -Negative COVID flu RSV PCR - EKG without stemi or major abnormality -CT ABD Pelvis show gallstones without cholecysitis, no dilation of CBD, no other acute findings -CTA PE Study negative Interventions of: -recommend OTC trial of famotidine, gentle heat and topical NSAID to area of pain. ED Course/Assessment/Plan: 42-year-old female presents with right mid rib pain, negative for PE, delta troponin negative for any signs of ACS, the patient had discomfort immediately after eating I suspect he may have an element of gastritis to do recommend a trial of OTC famotidine for couple weeks and pursue outpatient EGD. Recommend outpatient US of RUQ to definitively ruleout any CBD pathology but labs and exam are re-assuring. Findings not consistent with [ ]. Disposition of Chest Pain of Uncertain Etiology. Patient verbalized understanding of the plan and return to ED criteria and engaged in shared decision making. Medical Records Medical records reviewed: Yes I reviewed the patient's medical records. Imaging Data Radiologic Study: Attestation: I personally reviewed and interpreted this imaging study as follows: Imaging: CT Scan Radiologist's impression: Exam: CT Abdomen And Pelvis With Contrast Exam date and time: 06/18/2023 8:39 PM Age: 42 years old Clinical indication: Abdominal pain; Localized; Right upper quadrant (ruq); Prior surgery; Surgery date: 6+ months; Surgery type: ; Patient HX: Ruq pain, known gallstones TECHNIQUE: Imaging protocol: Computed tomography of the abdomen and pelvis with contrast. Radiation optimization: All CT scans at this facility use at least one of these dose optimization techniques: automated exposure control; mA and/or kV adjustment per patient size (includes targeted exams where dose is matched to clinical indication); or iterative reconstruction. Contrast material: OMNIPAQUE 350; Contrast volume: 100 ml; Contrast route: INTRAVENOUS (IV); COMPARISON: CT CHEST/ABD/PEL W 05/15/2022 8:33 AM FINDINGS: Liver: Liver normal in size.There is diffuse decrease in hepatic parenchymal density, consistent with moderate fatty infiltration. Gallbladder and bile ducts: Multiple gallstones. No gallbladder wall thickening or biliary ductal dilatation. Pancreas: Normal. No ductal dilation. Spleen: Normal. No splenomegaly. Adrenal glands: Normal. No mass. Kidneys and ureters: Normal. No hydronephrosis. Stomach and bowel: No dilated loops of small bowel or colonic dilatation. Appendix: No evidence of appendicitis. Intraperitoneal space: Unremarkable. No free air. No significant fluid collection. Vasculature: Unremarkable. No abdominal aortic aneurysm. Lymph nodes: Unremarkable. No enlarged lymph nodes. Urinary bladder: Unremarkable as visualized. Reproductive: IUD appears satisfactorily positioned in anteverted uterus. Bones/joints: Unremarkable. No acute fracture. Soft tissues: Diastasis recti measures approximately 10 cm in transverse extent. IMPRESSION: 1. Cholelithiasis. 2. IUD. Dictated and Authenticated by: Boby Tubbs MD. Ordering:RENETTA Davey MD Radiologic Study #2: Attestation: I personally reviewed and interpreted this imaging study as follows: Imaging: CT Scan Radiologist's impression: Exam: CTA Chest With Contrast Exam date and time: 06/18/2023 9:44 PM Age: 42 years old Clinical indication: Other: Elevated d-dimer, chest pain R sided TECHNIQUE: Imaging protocol: Computed tomographic angiography of the chest with contrast. Exam focused on the arteries. 3D rendering (Not supervised by radiologist): MIP and/or 3D reconstructed images were created by the technologist. Contrast material: 350; Contrast volume: 100 ml; Contrast route: INTRAVENOUS (IV); Other technique: Study limited due to habitus and motion degradation of multiple images. COMPARISON: CT CHEST PE CTA 09/07/2020 12:50 PM FINDINGS: Pulmonary arteries: No pulmonary artery filling defects through lobar level. Evaluation more distally limited due to habitus, motion degradation of images and suboptimal bolus timing. Aorta: No aortic aneurysm or dissection. Lungs: No parenchymal consolidation. Pleural spaces: Unremarkable. No pneumothorax. No pleural effusion. Heart: Cardiomegaly. Heart RV/LV ratio: 1.0. Coronary arteries: No coronary artery calcification. Lymph nodes: Unremarkable. No enlarged lymph nodes. Bones/joints: The spine demonstrates mild degenerative changes at multiple levels. Soft tissues: No abnormalities demonstrated IMPRESSION: 1. Limited study as noted. 2. No pulmonary artery embolism demonstrated through lobar level. Evaluation more distally limited. Consider further evaluation with ventilation and perfusion lung scans. 3. Cardiomegaly. Dictated and Authenticated by: Boby Tubbs MD. Lab Data Lab results reviewed: Yes I reviewed the patient's lab results. Labs: Laboratory Tests Range/Units 06/18/23 06/18/23 06/18/23 20:08 20:18 20:31 WBC (4.4-10.8) 10^3/uL 10.38 RBC (3.93-5.22) 10^6/uL 4.50 Hgb (11.2-15.7) g/dL 13.2 Hct (36.0-46.0) % 41.2 MCV (80-95) fL 92 MCH (27.0-33.0) pg 29.3 MCHC (32.0-36.0) % 32.0 RDW (11.7-14.6) % 13.8 Plt Count (130-400) 10^3/uL 383 MPV (8.0-11.0) fL 9.8 Immature Gran % 0.6 Neutrophils % 65.7 Lymphocytes % 26.0 Monocytes % 5.0 Eosinophils % 2.2 Basophils % 0.5 Nucleated RBC % (0.0-0.3) % 0.0 Absolute Neutrophils (1.2-6.7) 10^3/uL 6.82 H Absolute Lymphocytes (1.2-3.4) 10^3/uL 2.70 Absolute Monocytes (0.1-0.8) 10^3/uL 0.52 Absolute Eosinophils (0.0-0.7) 10^3/uL 0.23 Absolute Basophils (0.0-0.2) 10^3/uL 0.05 ESR (0-20) mm/hr 34 H D-Dimer (<500) ng/mlFEU 662 H VBG Lactate (0.6-1.4) mmol/L 1.2 Sodium (136-145) mmol/L 140 Potassium (3.5-5.1) mmol/L 3.7 Chloride (98-107) mmol/L 102 Carbon Dioxide (21.0-32.0) mmol/L 29.3 Anion Gap (3-11) mmol/L 8.7 BUN (7-18) mg/dL 16 Creatinine (0.55-1.02) mg/dL 0.9 Est GFR (CKD-EPI 2020) (mL/min/1.73m2) 81.86 Glucose (74-106) mg/dL 128 H Calcium (8.5-10.1) mg/dL 9.3 Magnesium (1.8-2.4) mg/dL 1.7 L Total Bilirubin (0.2-1.0) mg/dL 0.4 Conjugated Bilirubin (0.0-0.2) mg/dL 0.1 AST (15-37) U/L 10 L ALT (14-59) U/L 22 Alkaline Phosphatase (46-116) U/L 128 H Troponin I (< or =60) ng/L < 50 C-Reactive Protein (<or=0.5) mg/dL 2.45 H NT-Pro-B Natriuret Pep (<300) pg/mL 54 Total Protein (6.4-8.2) g/dL 7.9 Albumin (3.4-5.0) g/dL 3.4 Lipase (16-77) U/L 24 Procalcitonin ng/mL < 0.1 Urine Color (Yellow) Yellow Urine Clarity (Clear) Cloudy Urine pH (5-8) 6.0 Ur Specific [place] (1.005-1.025) >= 1.030 H Urine Protein (Neg-Trace) mg/dL 100 H Urine Ketones (Negative) mg/dL Trace H Urine Blood (Negative) Small H Urine Nitrite (Negative) Negative Urine Bilirubin (Negative) Small H Urine Urobilinogen (Up to 0.2) mg/dL 1.0 H Ur Leukocyte Esterase (Negative) Trace H Urine RBC (0-2) HPF 0-2 Urine WBC (0-5) HPF 0-2 Ur Epithelial Cells (Negative) HPF Many Urine Crystals (Negative) HPF Few Amorphous Urine Bacteria (Negative) HPF Moderate Urine Casts (Negative) LPF Negative Urine Mucus (Negative) Trace Ur Culture Indicated? No/Sq. Contamination Urine Glucose (Negative) mg/dL Negative COVID-19 Source Nasopharynx SARS-CoV-2 (PCR) (Negative) Negative Influenza Type A (PCR) (Negative) Negative Influenza Type B (PCR) (Negative) Negative RSV (PCR) (Negative) Negative Range/Units 06/18/23 23:10 WBC (4.4-10.8) 10^3/uL RBC (3.93-5.22) 10^6/uL Hgb (11.2-15.7) g/dL Hct (36.0-46.0) % MCV (80-95) fL MCH (27.0-33.0) pg MCHC (32.0-36.0) % RDW (11.7-14.6) % Plt Count (130-400) 10^3/uL MPV (8.0-11.0) fL Immature Gran % Neutrophils % Lymphocytes % Monocytes % Eosinophils % Basophils % Nucleated RBC % (0.0-0.3) % Absolute Neutrophils (1.2-6.7) 10^3/uL Absolute Lymphocytes (1.2-3.4) 10^3/uL Absolute Monocytes (0.1-0.8) 10^3/uL Absolute Eosinophils (0.0-0.7) 10^3/uL Absolute Basophils (0.0-0.2) 10^3/uL ESR (0-20) mm/hr D-Dimer (<500) ng/mlFEU VBG Lactate (0.6-1.4) mmol/L Sodium (136-145) mmol/L Potassium (3.5-5.1) mmol/L Chloride (98-107) mmol/L Carbon Dioxide (21.0-32.0) mmol/L Anion Gap (3-11) mmol/L BUN (7-18) mg/dL Creatinine (0.55-1.02) mg/dL Est GFR (CKD-EPI 2020) (mL/min/1.73m2) Glucose (74-106) mg/dL Calcium (8.5-10.1) mg/dL Magnesium (1.8-2.4) mg/dL Total Bilirubin (0.2-1.0) mg/dL Conjugated Bilirubin (0.0-0.2) mg/dL AST (15-37) U/L ALT (14-59) U/L Alkaline Phosphatase (46-116) U/L Troponin I (< or =60) ng/L < 50 C-Reactive Protein (<or=0.5) mg/dL NT-Pro-B Natriuret Pep (<300) pg/mL Total Protein (6.4-8.2) g/dL Albumin (3.4-5.0) g/dL Lipase (16-77) U/L Procalcitonin ng/mL Urine Color (Yellow) Urine Clarity (Clear) Urine pH (5-8) Ur Specific [place] (1.005-1.025) Urine Protein (Neg-Trace) mg/dL Urine Ketones (Negative) mg/dL Urine Blood (Negative) Urine Nitrite (Negative) Urine Bilirubin (Negative) Urine Urobilinogen (Up to 0.2) mg/dL Ur Leukocyte Esterase (Negative) Urine RBC (0-2) HPF Urine WBC (0-5) HPF Ur Epithelial Cells (Negative) HPF Urine Crystals (Negative) HPF Urine Bacteria (Negative) HPF Urine Casts (Negative) LPF Urine Mucus (Negative) Ur Culture Indicated? Urine Glucose (Negative) mg/dL COVID-19 Source SARS-CoV-2 (PCR) (Negative) Influenza Type A (PCR) (Negative) Influenza Type B (PCR) (Negative) RSV (PCR) (Negative) Quality:SDOH Health Related Social Needs: No Data to Display PFSH All Active Problems (Updated 06/18/23 @ 23:42 by MIREYA Cason) Chest pain of uncertain etiology (Acute) Basal cell carcinoma (Acute) Encounter for immunization (Acute) Thickened endometrium (Acute) DUB (dysfunctional uterine bleeding) (Acute) Chest pain in adult (Acute) Abnormal Pap smear of cervix (Acute) BMI 50.0-59.9, adult (Acute 11/10/15) Left-sided cerebrovascular accident (CVA) (Acute 06/25/16) 10d s/p RCD. L sided CVA with R sided hemiparesis. Uses cane to walk. R Hand and forearm not functioning. Medical History Headache Seasonal allergies History of iron deficiency Sleep apnea Anxiety and depression Vitamin D deficiency History of CVA (cerebrovascular accident) Elevated blood-pressure reading, without diagnosis of hypertension History of abnormal cervical Pap smear Urinary incontinence Tinea corporis Muscle spasm of right shoulder Flaccid hemiplegia affecting right dominant side Fatigue Alkaline phosphatase raised Menorrhagia Obstructive sleep apnea Cholelithiasis Morbid obesity Skin lesion Cerebrovascular accident (CVA) (06/25/16) L sided brain infarct. 2w PP from RCD. R hemiplegia. Previous section Enlarged thyroid Family history of breast cancer Hemiplegia Radicular syndrome of lower limbs BMI 45.0-49.9, adult 12/2013 BMI 47 Surgical History Ligation of fallopian tube (06/10/16) at time of RC/S. [facility] [place]. section PCD [facility]. RC/S with BTL. 06/10/16. Anny Perez [facility] [place]. Social History Smoking/Tobacco Use Status: Never Smoking risk assessment performed?: Yes Alcohol Intake: never Drug use: Never Do you feel safe at home: Yes Do you feel safe in your relationship?: Yes Discharge Plan Disposition Patient Disposition: Home Condition: Stable Discharge Details Clinical Impression: Chest pain of uncertain etiology Primary Care Provider: Marce Rankin ED Provider: Petar Poole Home Meds and New Rx's Prescriptions: Continued lisinopril 10 mg tablet 10 mg PO DAILY lidocaine [Lidoderm] 5 % adhesive patch,medicated 1 patch topical DAILY Rx Instructions: leave on most painful area for up to 12 hrs ergocalciferol (vitamin D2) 1,250 mcg (50,000 unit) capsule 1,250 mcg PO .Q 2WEEK cetirizine 10 mg tablet 10 mg PO DAILY PRN fluoxetine 40 mg capsule 40 mg PO DAILY naproxen 500 mg tablet 500 mg PO BID gabapentin [Neurontin] 600 MG tablet 1,200 mg PO TID aspirin 81 MG tablet,delayed release (DR/EC) 81 mg PO DAILY amitriptyline 10 MG tablet 10 mg PO HS sertraline [Zoloft] 50 MG tablet 50 mg PO QAM loratadine 10 MG tablet 10 mg PO QAM Discharge Instructions Instructions: Gastritis (ED), Costochondritis (ED) Additional Instructions: You were seen in the emergency department for your right pain in your ribs. We did rule out a blood clot in your lungs, there is no acute pathology seen on your CT of your abdomen besides gallstones without any sign of infection or obstruction on labs or imaging. The area of your pain is suspicious for costochondritis, please trial topical [id number] Voltaren gel a topical anti-inflammatory to this area to see if it relieves pain, you can also apply gentle heat to the area. Your onset after eating immediately is suspicious for gastritis or GERD or ulcerative disease of the stomach or duodenum. Please trial [id number] famotidine tablets twice per day for 2 weeks, pursue an outpatient upper endoscopy by talking with your primary care provider, if you continue to have this right upper quadrant pain please return to the ER during the daytime for ultrasound of the right upper quadrant you can also pursue this as an outpatient study from your primary care provider. Referrals: Marce Rankin [Primary Care Provider] -
--- NOTE | 2023-06-18 20:00 | DI.CT_ITS ---
Exam(s) CT ABDOMEN PELVIS W EXAM: CT ABDOMEN PELVIS W CLINICAL HISTORY: RUQ pain, known gallstones TECHNIQUE: Imaging Protocol: Axial computed tomography images with coronal and sagittal reformatted images were created and reviewed. CONTRAST MATERIAL: Intravenous: Omnipaque 350 Contrast volume:100 mL Oral: No COMPARISON: CT ABD PELVIS WO CONTRAST from 08/19/2016 CT CHEST WITH CONTRAST from 09/21/[address] CHEST PE CTA from 09/07/[address] CHEST/ABD/PEL W from 05/15/2022 FINDINGS: The examination is limited due to patient motion artifact. ABDOMEN: Lung Bases: There is again seen a 6-7 mm nodule in the medial aspect of the left lower lobe. Liver: Normal density. No measurable mass. Portal, Superior Mesenteric, and Splenic Veins: Unremarkable. Gallbladder and Biliary Tract: Cholelithiasis. No biliary ductal dilatation. Pancreas: Normal density, no abnormal calcifications or inflammatory process. Spleen: Normal. Adrenals: No masses seen. Kidneys: Normal size, contour and axis. No radiodense stones or obstructive uropathy. No masses seen. Abdominal Aorta: Abdominal portion non-dilated. Bowel: No obstruction or bowel wall thickening. No evidence of appendicitis. Peritoneal Cavity: No ascites, collection or mesenteric inflammatory response. No free air. Lymph Nodes: Within normal limits. Bones: Within normal limits for the patient's age. The sclerotic lesion in the right iliac bone is u nchanged. There is sclerosis seen at the sacroiliac joints again seen. Soft Tissues: There is a small fat containing umbilical hernia. PELVIS: Bladder: The urinary bladder is incompletely distended limiting evaluation. Reproductive Organs: The IUD appears in good position. Lymph Nodes: Within normal limits. Bones: Within normal limits for the patient's age. IMPRESSION: 1. No acute abdominal or pelvic process. Cholelithiasis. No biliary ductal dilatation. No CT jose cruz dence to suggest acute cholecystitis. 2. Incidental findings in the abdomen and pelvis which appears stable. RADIATION DOSE DELIVERED: 1,740.33mGy.cm Total DLP DATA REPOSITORY: All CT scans at this facility are submitted to the National Radiology Data Registry (NRDR) Dose Index Registry (DIR) with the [employer] (A[employer]). RADIATION OPTIMIZATION: All CT scans at this facility use at least one of these dose optimization te chniques: automated exposure control; mA and/or kV adjustment per patient size (includes targeted exa ms where dose is matched to clinical indication); or iterative reconstruction.
[2023-06-18 20:25] LABS: Lactate 1.2 mmol/L (0.6-1.4)
[2023-06-18 20:43] LABS: Abs Immature Grans 0.06 10^3/uL (0.0-0.06); Absolute Basophil Count 0.05 10^3/uL (0.0-0.2); Absolute Eosinophil Count 0.23 10^3/uL (0.0-0.7); Absolute Monocyte Count 0.52 10^3/uL (0.1-0.8); Absolute Neutrophil Count 6.82 10^3/uL (1.2-6.7); Basophils % 0.5; Eosinophils % 2.2; HCT 41.2 % (36.0-46.0); HGB 13.2 g/dL (11.2-15.7); Immature Grans % 0.6; MCH 29.3 pg (27.0-33.0); MCV 92 fL (80-95); MPV 9.8 fL (8.0-11.0); Neutrophils % 65.7; Platelet Count 383 10^3/uL (130-400); RDW 13.8 % (11.7-14.6); RDW-SD 46.7 fL; WBC 10.38 10^3/uL (4.4-10.8)
[2023-06-18 20:48] LABS: Bilirubin Small (Negative); Blood Small (Negative); Clarity Cloudy (Clear); Glucose Negative (Negative); Ketones Trace mg/dL (Negative); Leukocyte Esterase Trace (Negative); Nitrite Negative (Negative); Specific Gravity >= 1.030 (1.005-1.025)
[2023-06-18 20:50] LABS: ESR 34 mm/hr (0-20)
[2023-06-18 20:52] LABS: ALT 22 U/L (14-59); AST 10 U/L (15-37); Albumin 3.4 g/dL (3.4-5.0); Alkaline Phosphatase 128 U/L (46-116); Anion Gap 8.7 mmol/L (3-11); BUN 16 mg/dL (7-18); Bilirubin, Direct 0.1 mg/dL (0.0-0.2); Bilirubin, Total 0.4 mg/dL (0.2-1.0); C-Reactive Protein 2.45 mg/dL (<or=0.5); CO2 29.3 mmol/L (21.0-32.0); CREATININE 0.9 mg/dL (0.55-1.02); Calcium 9.3 mg/dL (8.5-10.1); Chloride 102 mmol/L (98-107); Estimated GFR 81.86 (mL/min/1.73m2); Glucose 128 mg/dL (74-106); Lipase 24 U/L (16-77); Magnesium 1.7 mg/dL (1.8-2.4); NT-proBNP 54 pg/mL (<300); Potassium 3.7 mmol/L (3.5-5.1); Sodium 140 mmol/L (136-145); Total Protein 7.9 g/dL (6.4-8.2)
[2023-06-18] MEDS: Omnipaque 350 MG/ML 100 ML BTL IJ ×2 (20:53→21:45)
[2023-06-18] MEDS: Normal Saline - Diluent 50 ML VIAL IJ ×2 (20:54→21:44)
[2023-06-18 20:55] LABS: Troponin I < 50 ng/L (< or =60)
[2023-06-18] MEDS: Normal Saline Flush 10 ML SYR IVP (20:55)
[2023-06-18 20:56] LABS: COVID-19 PCR Negative (Negative); Influenza A PCR Negative (Negative); Influenza B PCR Negative (Negative); RSV PCR Negative (Negative)
[2023-06-18 20:59] LABS: Source Nasopharynx
[2023-06-18 21:02] LABS: Bacteria Moderate HPF (Negative); C & S Indicated? No/Sq. Contamination; Casts Negative LPF (Negative); Crystals Few Amorphous HPF (Negative); Epithelial Cells Many HPF (Negative); Mucus Trace (Negative); RBC 0-2 HPF (0-2); WBC 0-2 HPF (0-5)
[2023-06-18 21:09] LABS: D-Dimer 662 ng/mlFEU (<500); Procalcitonin < 0.1 ng/mL
--- NOTE | 2023-06-18 21:15 | DI.CT_ITS ---
Exam(s) CT CHEST PE CTA EXAM: CT CHEST PE CTA CLINICAL HISTORY: elevated d-dimer, chest pain R sided. TECHNIQUE: Imaging Protocol: Axial CT angiography was performed with multi-slice acquisition and mu lti-planar and/or 3D reconstructions. CONTRAST MATERIAL: Intravenous: Omnipaque 350 contrast volume:100 mL COMPARISON: CT CHEST WITH CONTRAST from 09/21/[address] CHEST PE CTA from 09/07/[address] CHEST/ABD/PEL W from 05/15/[address] ABDOMEN PELVIS W from 06/18/2023 FINDINGS: The examination is limited due to patient motion artifact. Tracheobronchial tree: Patent where visualized. Pulmonary parenchyma: There is again seen a 1 cm nodule in the medial aspect of the left lung base. No focal consolidating infiltrates. Pulmonary Arteries: There is patient motion artifact which limits evaluation of the pulmonary arterie s particularly at the subsegmental level. No pulmonary embolus is seen. Mediastinum and Jihan: No dominant adenopathy or fluid collection. The esophagus is unremarkable. Visualized thyroid gland: Unremarkable. Pleura: No effusion or pneumothorax. Heart: Heart is at the upper limits of normal in size. No coronary artery calcifications are seen. N o pericardial effusion. Aorta: Thoracic aorta non-dilated. No evidence of dissection. Upper abdomen: Unremarkable. Soft tissues: Unremarkable. Bones: Within normal limits for the patient's age. IMPRESSION: 1. No evidence of pulmonary embolism. The peripheral pulmonary arteries are poorly evaluated due to patient motion artifact. 2. Thoracic aortic dissection or aneurysm. 3. No acute pulmonary process. RADIATION DOSE DELIVERED: 666.37mGy.cm Total DLP DATA REPOSITORY: All CT scans at this facility are submitted to the National Radiology Data Registry (NRDR) Dose Index Registry (DIR) with the [employer] (A[employer]). RADIATION OPTIMIZATION: All CT scans at this facility use at least one of these dose optimization te chniques: automated exposure control; mA and/or kV adjustment per patient size (includes targeted exa ms where dose is matched to clinical indication); or iterative reconstruction.
--- NOTE | 2023-06-18 22:06 | DI.VRAD_ITS ---
PROCEDURE INFORMATION: Exam: CT Abdomen And Pelvis With Contrast Exam date and time: 06/18/2023 8:39 PM Age: 42 years old Clinical indication: Abdominal pain; Localized; Right upper quadrant (ruq); Prior surgery; Surgery date: 6+ months; Surgery type: ; Patient HX: Ruq pain, known gallstones TECHNIQUE: Imaging protocol: Computed tomography of the abdomen and pelvis with contrast. Radiation optimization: All CT scans at this facility use at least one of these dose optimization techniques: automated exposure control; mA and/or kV adjustment per patient size (includes targeted exams where dose is matched to clinical indication); or iterative reconstruction. Contrast material: OMNIPAQUE 350; Contrast volume: 100 ml; Contrast route: INTRAVENOUS (IV); COMPARISON: CT CHEST/ABD/PEL W 05/15/2022 8:33 AM FINDINGS: Liver: Liver normal in size.There is diffuse decrease in hepatic parenchymal density, consistent with moderate fatty infiltration. Gallbladder and bile ducts: Multiple gallstones. No gallbladder wall thickening or biliary ductal dilatation. Pancreas: Normal. No ductal dilation. Spleen: Normal. No splenomegaly. Adrenal glands: Normal. No mass. Kidneys and ureters: Normal. No hydronephrosis. Stomach and bowel: No dilated loops of small bowel or colonic dilatation. Appendix: No evidence of appendicitis. Intraperitoneal space: Unremarkable. No free air. No significant fluid collection. Vasculature: Unremarkable. No abdominal aortic aneurysm. Lymph nodes: Unremarkable. No enlarged lymph nodes. Urinary bladder: Unremarkable as visualized. Reproductive: IUD appears satisfactorily positioned in anteverted uterus. Bones/joints: Unremarkable. No acute fracture. Soft tissues: Diastasis recti measures approximately 10 cm in transverse extent. IMPRESSION: 1. Cholelithiasis. 2. IUD. Dictated and Authenticated by: Boby Tubbs MD. Ordering:RENETTA Davey MD
--- NOTE | 2023-06-18 22:22 | DI.VRAD_ITS ---
PROCEDURE INFORMATION: Exam: CTA Chest With Contrast Exam date and time: 06/18/2023 9:44 PM Age: 42 years old Clinical indication: Other: Elevated d-dimer, chest pain R sided TECHNIQUE: Imaging protocol: Computed tomographic angiography of the chest with contrast. Exam focused on the arteries. 3D rendering (Not supervised by radiologist): MIP and/or 3D reconstructed images were created by the technologist. Contrast material: 350; Contrast volume: 100 ml; Contrast route: INTRAVENOUS (IV); Other technique: Study limited due to habitus and motion degradation of multiple images. COMPARISON: CT CHEST PE CTA 09/07/2020 12:50 PM FINDINGS: Pulmonary arteries: No pulmonary artery filling defects through lobar level. Evaluation more distally limited due to habitus, motion degradation of images and suboptimal bolus timing. Aorta: No aortic aneurysm or dissection. Lungs: No parenchymal consolidation. Pleural spaces: Unremarkable. No pneumothorax. No pleural effusion. Heart: Cardiomegaly. Heart RV/LV ratio: 1.0. Coronary arteries: No coronary artery calcification. Lymph nodes: Unremarkable. No enlarged lymph nodes. Bones/joints: The spine demonstrates mild degenerative changes at multiple levels. Soft tissues: No abnormalities demonstrated IMPRESSION: 1. Limited study as noted. 2. No pulmonary artery embolism demonstrated through lobar level. Evaluation more distally limited. Consider further evaluation with ventilation and perfusion lung scans. 3. Cardiomegaly. Dictated and Authenticated by: Boby Tubbs MD. Ordering:RENETTA Davey MD
[2023-06-18 23:39] LABS: Troponin I < 50 ng/L (< or =60)
[2023-06-19] VITALS: PULSE 76; RESP 18; O2SAT 99
[2023-06-19 00:10] VITALS: PULSE 78; RESP 14; O2SAT 99
[2023-06-19 00:16] VITALS: BP 130/68; PULSE 80; RESP 16; O2SAT 98
== END 2023-06-19 00:16 | disposition home or self-care (01) ==
PROVIDERS: Emergency Provider Physician Assistant; PCP Family Medicine
DX: R07.89 Other chest pain (principal); K80.20 Calculus of gallbladder without cholecystitis without obstruction; Z11.52 Encounter for screening for COVID-19; Z79.82 Long term (current) use of aspirin; Z86.73 Personal history of transient ischemic attack (TIA), and cerebral infarction without residual deficits
CPT/HCPCS: 36415; 71275; 80053; 80076; 81025; 83690; 84145; 85652; 87637; 99285; 74177; 81003; 81015; 83605; 83735; 83880; 84484; 85025; 85379; 86140; 99284; J3490

== ENCOUNTER 2023-08-25 12:49 | Emergency (ER) | payer MEDICARE, MEDICAID, SELFPAY ==
[2023-08-25] VITALS (13 sets, daily range): BP systolic 147–173; BP diastolic 79–94; PULSE 70–90; RESP 13–19; TEMP 37.1; O2SAT 97–100
--- NOTE | 2023-08-25 12:45 | RT.EKG_ITS ---
APPROVED REPORT Exam: Resting ECG Reason for Exam: nausea, dizzy Patient Location: E HR:69 bpm ECG Measurements Heart Rate 69 AXIS GA 174 P 31 QRSd 105 QRS 48 QT 405 T 61 QTc 436 Conclusion Sinus rhythm 69 no stemi
--- NOTE | 2023-08-25 12:57 | W.ED.GENAD ---
Discharge Plan Disposition Patient Disposition: Home Condition: Stable Discharge Details Clinical Impression: Nausea Primary Care Provider: Marce Rankin ED Provider: Joan Mejia Home Meds and New Rx's Prescriptions: Continued lisinopril 10 mg tablet 10 mg PO DAILY lidocaine [Lidoderm] 5 % adhesive patch,medicated 1 patch topical DAILY Rx Instructions: leave on most painful area for up to 12 hrs ergocalciferol (vitamin D2) 1,250 mcg (50,000 unit) capsule 1,250 mcg PO .Q 2WEEK cetirizine 10 mg tablet 10 mg PO DAILY PRN fluoxetine 40 mg capsule 40 mg PO DAILY naproxen 500 mg tablet 500 mg PO BID gabapentin [Neurontin] 600 MG tablet 1,200 mg PO TID aspirin 81 MG tablet,delayed release (DR/EC) 81 mg PO DAILY amitriptyline 10 MG tablet 10 mg PO HS sertraline [Zoloft] 50 MG tablet 50 mg PO QAM loratadine 10 MG tablet 10 mg PO QAM Discharge Instructions Instructions: Acute Nausea and Vomiting (ED) Additional Instructions: No evidence of abnormality on your workup. No evidence of heart injury. Did have some blood in your urine. Please follow-up with your primary care doctor. Follow up with primary care provider in 3-5 days. Return to ED sooner if any worsening or concerns. Referrals: Marce Rankin [Primary Care Provider] - 3 days HPI General Mode of arrival: wheelchair. Date/Time Provider Initiated Documentation: 08/25/23 12:55. Limitations to Documentation: no limitations. Information obtained by: patient, RN notes reviewed and old records reviewed. HPI Narrative: 42-year-old female presents to the ER via wheelchair with a chief complaint of generally not feeling well while at lunch today. 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 She reports feeling a little warm and nauseous presented to the ER for further evaluation. She does have a past medical history of CVA with right-sided deficits, morbid obesity, anxiety depression, sleep apnea, iron deficiency, hypertension. She denies any pain anywhere right now denies any nausea vomiting currently or problems urinating. Related Data Home Medications Medication Instructions Recorded Confirmed amitriptyline 10 mg tablet 10 mg PO HS 08/19/16 06/18/23 aspirin 81 mg tablet,delayed 81 mg PO DAILY 08/19/16 06/18/23 release gabapentin 600 mg tablet 1,200 mg PO TID 08/19/16 06/18/23 (Neurontin) loratadine 10 mg tablet 10 mg PO QAM 08/19/16 06/18/23 sertraline 50 mg tablet (Zoloft) 50 mg PO QAM 08/19/16 06/18/23 lisinopril 10 mg tablet 10 mg PO DAILY 08/05/21 06/18/23 cetirizine 10 mg tablet 10 mg PO DAILY PRN 11/25/22 06/18/23 ergocalciferol (vitamin D2) 1,250 1,250 mcg PO .Q 2WEEK 11/25/22 06/18/23 mcg (50,000 unit) capsule fluoxetine 40 mg capsule 40 mg PO DAILY 11/25/22 06/18/23 lidocaine 5 % topical patch 1 patch topical DAILY 11/25/22 06/18/23 (Lidoderm) naproxen 500 mg tablet 500 mg PO BID 11/25/22 06/18/23 Allergies Allergy/AdvReac Type Severity Reaction Status Date / Time morphine Allergy Intermediate Skin Rash Verified 06/18/23 20:02 latex Allergy Mild Skin Rash Verified 06/18/23 20:02 General [place]: 4 Review of Systems All systems reviewed & are unremarkable except as noted in HPI and below Constitutional Constitutional: Reports as per HPI and Reports other ([place] warm) Exam Narrative Exam Narrative: Constitutional: Alert and oriented x3. Appears stated age. Obese body habitus. Head: Normocephalic, no trauma. Eyes: Pupils PERRL, Red reflex noted, EOM's intact. Eyelids symmetrical without lesions, discharge, or swelling. ENT: Bilateral TM's WNL, External ear normal to inspection, no mastoid TTP, swelling, or erythema, Nasal turbinates WNL, no nasal discharge. Normal dentition, Posterior pharynx WNL, no exudate. Chest: RRR, Normal S1, S2, distal pulses intact. Resp: Lungs clear to auscultation bilaterally, no wheezes, rales, or rhonchi. Abdomen: Soft, non-distended, Normoactive bowel sounds all 4 quads. Musculoskeletal: Normal gait, Skin: No suspicious rashes or lesions. Capillary refill less than 2 sec. Neurologic: Cranial nerves II-XII intact. Alert and oriented x 3. Motor: No deficits noted. Sensory: Intact bilaterally all 4 extremities. Does have contractures noted to her right upper extremity. Hematologic/Lymphatic: No ecchymosis, no lymphadenopathy. Medical Decision Making 42-year-old female presents to the ER via wheelchair with a chief complaint of generally not feeling well while at lunch today. 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 She reports feeling a little warm and nauseous presented to the ER for further evaluation. She does have a past medical history of CVA with right-sided deficits, morbid obesity, anxiety depression, sleep apnea, iron deficiency, hypertension. She denies any pain anywhere right now denies any nausea vomiting currently or problems urinating. Workup ordered including CBC CMP EKG troponin. On patient reevaluation she reports feeling somewhat better however still complaining of nausea/face. She is hypertensive here in the department she did report that she took her blood pressure medication this morning. Zofran 4 mg ODT ordered 25 of Benadryl 500 cc normal saline. CBC shows no leukocytosis, CMP shows glucose 120 calcium 10.2 urinalysis shows trace ketones moderate blood trace leukocytes 10-20 RBCs however 5-10 WBCs is squamous contamination culture not indicated at this time. Second troponin within normal limits. Will discharge patient with possible allergic reaction versus nausea. Instructed to follow-up with PCP return for any worsening. This text was generated using [employer] dictation system, please disregard any oddities of phrase or misspellings. Medical Records Medical records reviewed: Yes I reviewed the patient's medical records. Lab Data Lab results reviewed: Yes I reviewed the patient's lab results. Labs: Laboratory Tests Range/Units 08/25/23 08/25/23 08/25/23 13:06 13:20 13:35 WBC (4.4-10.8) 10^3/uL 9.97 RBC (3.93-5.22) 10^6/uL 4.86 Hgb (11.2-15.7) g/dL 14.5 Hct (36.0-46.0) % 45.9 MCV (80-95) fL 94 MCH (27.0-33.0) pg 29.8 MCHC (32.0-36.0) % 31.6 L RDW (11.7-14.6) % 14.4 Plt Count (130-400) 10^3/uL 341 MPV (8.0-11.0) fL 9.9 Immature Gran % 0.4 Neutrophils % 75.9 Lymphocytes % 17.5 Monocytes % 4.4 Eosinophils % 1.4 Basophils % 0.4 Nucleated RBC % (0.0-0.3) % 0.0 Absolute Neutrophils (1.2-6.7) 10^3/uL 7.57 H Absolute Lymphocytes (1.2-3.4) 10^3/uL 1.74 Absolute Monocytes (0.1-0.8) 10^3/uL 0.44 Absolute Eosinophils (0.0-0.7) 10^3/uL 0.14 Absolute Basophils (0.0-0.2) 10^3/uL 0.04 Sodium Cancelled 139 Potassium Cancelled 4.7 Chloride Cancelled 103 Carbon Dioxide Cancelled 26.2 Anion Gap Cancelled 9.8 BUN Cancelled 21 H Creatinine Cancelled 0.8 Est GFR (CKD-EPI 2020) Cancelled 94.28 Glucose Cancelled 120 H Calcium Cancelled 10.2 H Magnesium Cancelled 2.0 Total Bilirubin Cancelled 0.3 AST Cancelled 24 ALT Cancelled 30 Alkaline Phosphatase Cancelled 116 Troponin I Cancelled < 50 Total Protein Cancelled 8.5 H Albumin Cancelled 3.9 Lipase Cancelled 34 Urine Color (Yellow) Yellow Urine Clarity (Clear) Cloudy Urine pH (5-8) 6.5 Ur Specific Wagoner (1.005-1.025) >= 1.030 H Urine Protein (Neg-Trace) mg/dL Trace Urine Ketones (Negative) mg/dL Trace H Urine Blood (Negative) Moderate H Urine Nitrite (Negative) Negative Urine Bilirubin (Negative) Small H Urine Urobilinogen (Up to 0.2) mg/dL >=8.0 H Ur Leukocyte Esterase (Negative) Trace H Urine RBC (0-2) HPF 10-20 H Urine WBC (0-5) HPF 5-10 Ur Epithelial Cells (Negative) HPF Many Urine Crystals (Negative) HPF Moderate Amorphous Urine Bacteria (Negative) HPF Moderate Urine Casts (Negative) LPF 0-2 Fine Granular Urine Mucus (Negative) Trace Ur Culture Indicated? No/Sq. Contamination Urine Glucose (Negative) mg/dL Negative Quality:SDOH Health Related Social Needs: No Data to Display PFSH All Active Problems (Updated 08/25/23 @ 15:46 by Joan Mjeia NP) Nausea (Acute) Basal cell carcinoma (Acute) Encounter for immunization (Acute) Thickened endometrium (Acute) DUB (dysfunctional uterine bleeding) (Acute) Chest pain in adult (Acute) Abnormal Pap smear of cervix (Acute) BMI 50.0-59.9, adult (Acute 11/10/15) Left-sided cerebrovascular accident (CVA) (Acute 06/25/16) 10d s/p RCD. L sided CVA with R sided hemiparesis. Uses cane to walk. R Hand and forearm not functioning. Medical History Headache Seasonal allergies History of iron deficiency Sleep apnea Anxiety and depression Vitamin D deficiency History of CVA (cerebrovascular accident) Elevated blood-pressure reading, without diagnosis of hypertension History of abnormal cervical Pap smear Urinary incontinence Tinea corporis Muscle spasm of right shoulder Flaccid hemiplegia affecting right dominant side Fatigue Alkaline phosphatase raised Menorrhagia Obstructive sleep apnea Cholelithiasis Morbid obesity Skin lesion Cerebrovascular accident (CVA) (06/25/16) L sided brain infarct. 2w PP from RCD. R hemiplegia. Previous section Enlarged thyroid Family history of breast cancer Hemiplegia Radicular syndrome of lower limbs BMI 45.0-49.9, adult 12/2013 BMI 47 Surgical History Ligation of fallopian tube (06/10/16) at time of RC/S. [facility]. section PCD [facility]. RC/S with BTL. 06/10/16. Anny Perez [facility] [place]. Social History Smoking/Tobacco Use Status: Never Smoking risk assessment performed?: Yes Alcohol Intake: never Drug use: Never Do you feel safe at home: Yes Do you feel safe in your relationship?: Yes
[2023-08-25 13:12] LABS: Abs Immature Grans 0.04 10^3/uL (0.0-0.06); Absolute Basophil Count 0.04 10^3/uL (0.0-0.2); Absolute Eosinophil Count 0.14 10^3/uL (0.0-0.7); Absolute Lymphocyte Count 1.74 10^3/uL (1.2-3.4); Absolute Monocyte Count 0.44 10^3/uL (0.1-0.8); Absolute Neutrophil Count 7.57 10^3/uL (1.2-6.7); Basophils % 0.4; Eosinophils % 1.4; HCT 45.9 % (36.0-46.0); HGB 14.5 g/dL (11.2-15.7); Immature Grans % 0.4; Lymphocytes % 17.5; MCH 29.8 pg (27.0-33.0); MCHC 31.6 % (32.0-36.0); MCV 94 fL (80-95); MPV 9.9 fL (8.0-11.0); Monocytes % 4.4; Neutrophils % 75.9; Platelet Count 341 10^3/uL (130-400); RBC 4.86 10^6/uL (3.93-5.22); RDW 14.4 % (11.7-14.6); RDW-SD 50.4 fL; WBC 9.97 10^3/uL (4.4-10.8)
[2023-08-25 13:52] LABS: Bilirubin Small (Negative); Blood Moderate (Negative); Clarity Cloudy (Clear); Glucose Negative (Negative); Ketones Trace mg/dL (Negative); Leukocyte Esterase Trace (Negative); Nitrite Negative (Negative); Specific Gravity >= 1.030 (1.005-1.025); Urobilinogen >=8.0 mg/dL (Up to 0.2); pH 6.5 (5-8)
[2023-08-25 13:59] LABS: ALT 30 U/L (14-59); AST 24 U/L (15-37); Albumin 3.9 g/dL (3.4-5.0); Alkaline Phosphatase 116 U/L (46-116); Anion Gap 9.8 mmol/L (3-11); BUN 21 mg/dL (7-18); Bilirubin, Total 0.3 mg/dL (0.2-1.0); CO2 26.2 mmol/L (21.0-32.0); CREATININE 0.8 mg/dL (0.55-1.02); Calcium 10.2 mg/dL (8.5-10.1); Chloride 103 mmol/L (98-107); Estimated GFR 94.28 (mL/min/1.73m2); Glucose 120 mg/dL (74-106); Lipase 34 U/L (16-77); Potassium 4.7 mmol/L (3.5-5.1); Sodium 139 mmol/L (136-145); Total Protein 8.5 g/dL (6.4-8.2); Troponin I < 50 ng/L (< or =60)
[2023-08-25 14:00] LABS: Bacteria Moderate HPF (Negative); C & S Indicated? No/Sq. Contamination; Casts 0-2 Fine Granular LPF (Negative); Crystals Moderate Amorphous HPF (Negative); Epithelial Cells Many HPF (Negative); Mucus Trace (Negative)
[2023-08-25] MEDS: diphenhydrAMINE 25 MG CAP PO (14:54)
[2023-08-25] MEDS: Ondansetron O.D.T. 4 MG TABEF PO (14:54)
[2023-08-25] MEDS: Normal Saline 500 ML IV (14:55)
[2023-08-25 15:24] LABS: Troponin I < 50 ng/L (< or =60)
== END 2023-08-25 16:08 | disposition home or self-care (01) ==
PROVIDERS: Emergency Provider Registered Nurse Emergency; PCP Family Medicine
DX: R11.0 Nausea (principal); I69.351 Hemiplegia and hemiparesis following cerebral infarction affecting right dominant side; Z79.82 Long term (current) use of aspirin
CPT/HCPCS: 36415; 80053; 81025; 83690; 93005; 99284; 81003; 81015; 83735; 84484; 85025; 93010

== ENCOUNTER 2023-11-07 14:38 | Outpatient (CLI) | payer MEDICARE, MEDICAID, SELFPAY ==
[2023-11-07 12:43] LABS: Abs Immature Grans 0.05 10^3/uL (0.0-0.06); Absolute Basophil Count 0.04 10^3/uL (0.0-0.2); Absolute Eosinophil Count 0.16 10^3/uL (0.0-0.7); Absolute Monocyte Count 0.65 10^3/uL (0.1-0.8); Absolute Neutrophil Count 6.75 10^3/uL (1.2-6.7); Basophils % 0.4 %; Eosinophils % 1.6 %; HCT 40.2 % (36.0-46.0); HGB 12.9 g/dL (11.2-15.7); Immature Grans % 0.5 %; Lymphocytes % 21.5 %; MCH 30.4 pg (27.0-33.0); MCHC 32.1 % (32.0-36.0); MCV 95 fL (80-95); Monocytes % 6.7 %; Neutrophils % 69.3 %; Platelet Count 263 10^3/uL (130-400); RBC 4.25 10^6/uL (3.93-5.22); RDW 13.8 % (11.7-14.6); RDW-SD 47.8 fL; WBC 9.75 10^3/uL (4.4-10.8)
[2023-11-07 13:06] LABS: ALT 19 U/L (14-59); AST 10 U/L (15-37); Albumin 3.2 g/dL (3.4-5.0); Alkaline Phosphatase 106 U/L (46-116); Anion Gap 7.6 mmol/L (3-11); BUN 13 mg/dL (7-18); CO2 29.4 mmol/L (21.0-32.0); CREATININE 0.8 mg/dL (0.55-1.02); Calcium 9.2 mg/dL (8.5-10.1); Chloride 103 mmol/L (98-107); Estimated GFR 94.28 (mL/min/1.73m2); Glucose 97 mg/dL (74-106); NT-proBNP 111 pg/mL (<300); Potassium 4.1 mmol/L (3.5-5.1); Sodium 140 mmol/L (136-145); Total Protein 7.3 g/dL (6.4-8.2)
[2023-11-07 13:15] LABS: D-Dimer 513 ng/mlFEU (<500)
== END 2023-11-07 14:39 | disposition home or self-care (01) ==
LOC: LBO 14:39
PROVIDERS: PCP Family Medicine; Visit Provider Nurse Practitioner Family
DX: R60.0 Localized edema (principal)
CPT/HCPCS: 36415; 80053; 83880; 85025; 85379

== ENCOUNTER → 2023-11-08 00:21 | Outpatient (CLI) | payer MEDICARE, MEDICAID, SELFPAY ==
--- NOTE | 2023-11-08 | DI.US_ITS ---
Exam(s) US LOWER EXTREMITY VENOUS RT EXAM: US LOWER EXTREMITY VENOUS RT CLINICAL HISTORY: M79.604 Pain RT leg. TECHNIQUE: Lower extremity venous ultrasound performed using grayscale, color-flow, and spectral Do ppler analysis. COMPARISON: No exams were available for comparison FINDINGS: The common femoral, femoral and popliteal veins demonstrate normal compressibility, augmentation, and color Doppler. Calf veins are suboptimally visualized due to patient body habitus. The posterior t ibial veins are patent. No saphenous vein thrombosis or other superficial venous thrombosis is seen. There is a Diaz's cyst measuring 3.0 x 1.5 x 2.8 cm. IMPRESSION: small Diaz's cyst. No evidence of DVT. Calf veins suboptimally visualized DATA REPOSITORY:
== END ==
PROVIDERS: PCP Family Medicine; Visit Provider Nurse Practitioner Family
DX: M79.604 Pain in right leg (principal); M71.21 Synovial cyst of popliteal space [Baker], right knee
CPT/HCPCS: 93971

== ENCOUNTER 2024-05-28 19:47 | Emergency (ER) | payer MEDICARE, MEDICAID, SELFPAY ==
--- NOTE | 2024-05-28 19:45 | RT.EKG_ITS ---
APPROVED REPORT Exam: Resting ECG Reason for Exam: altered mental status Patient Location: E HR:114 bpm ECG Measurements Heart Rate 114 AXIS PA 177 P 35 QRSd 104 QRS 69 QT 358 T 47 QTc 441 Conclusion Sinus rhythm...normal P axis, V-rate 60- 99 Multiform ventricular premature complexes...short R-R, variable morphology Low voltage, precordial leads...precordial leads <1.0mV
[2024-05-28 19:56] VITALS: BP 106/52; PULSE 87; RESP 19; TEMP 36.4; O2SAT 99
[2024-05-28 20:03] VITALS: RESP 18
--- NOTE | 2024-05-28 20:17 | ED.GENADUL_ITS ---
Discharge Plan Disposition Patient Disposition: Home Condition: Stable Discharge Details Clinical Impression: Fatigue, Altered mental status Primary Care Provider: Marce Rankin ED Provider: Billy Medina Home Meds and New Rx's Prescriptions: Continued lisinopril 10 mg tablet 10 mg PO DAILY lidocaine [Lidoderm] 5 % adhesive patch,medicated 1 patch topical DAILY Rx Instructions: leave on most painful area for up to 12 hrs ergocalciferol (vitamin D2) 1,250 mcg (50,000 unit) capsule 1,250 mcg PO .Q 2WEEK cetirizine 10 mg tablet 10 mg PO DAILY PRN fluoxetine 40 mg capsule 40 mg PO DAILY naproxen 500 mg tablet 500 mg PO BID gabapentin [Neurontin] 600 MG tablet 1,200 mg PO TID aspirin 81 MG tablet,delayed release (DR/EC) 81 mg PO DAILY amitriptyline 10 MG tablet 10 mg PO HS sertraline [Zoloft] 50 MG tablet 50 mg PO QAM loratadine 10 MG tablet 10 mg PO QAM Discharge Instructions Additional Instructions: Your imaging and lab work did not show any concerning findings Follow-up with your primary care provider within 1 to 2 weeks If you feel more ill, have high fevers or new symptoms such as persistent vomiting return to the emergency department for reevaluation HPI General Mode of arrival: ambulatory . Date/Time Provider Initiated Documentation: 05/28/24 19:52 . Limitations to Documentation: no limitations . Information obtained by: patient . History of Present Illness 43 year old F presents to the emergency department with the chief complaint of Tired, described as moderate, Patient reports no radiation. Patient started experiencing this hour(s) (2) and it has been constant. No relieving factors improve symptom(s), No exacerbating factors reported . Patient notes denies chest pain, fever/chills and shortness of breath. Patient did receive the following treatments prior to arrival, none Related Data Home Medications ?Medication ?Instructions ?Recorded ?Confirmed amitriptyline 10 mg tablet 10 mg PO HS 08/19/16 05/28/24 aspirin 81 mg tablet,delayed 81 mg PO DAILY 08/19/16 05/28/24 release gabapentin 600 mg tablet 1,200 mg PO TID 08/19/16 05/28/24 (Neurontin) loratadine 10 mg tablet 10 mg PO QAM 08/19/16 05/28/24 sertraline 50 mg tablet (Zoloft) 50 mg PO QAM 08/19/16 06/18/23 lisinopril 10 mg tablet 10 mg PO DAILY 08/05/21 05/28/24 cetirizine 10 mg tablet 10 mg PO DAILY PRN 11/25/22 05/28/24 ergocalciferol (vitamin D2) 1,250 1,250 mcg PO .Q 2WEEK 11/25/22 05/28/24 mcg (50,000 unit) capsule fluoxetine 40 mg capsule 40 mg PO DAILY 11/25/22 05/28/24 lidocaine 5 % topical patch 1 patch topical DAILY 11/25/22 06/18/23 (Lidoderm) naproxen 500 mg tablet 500 mg PO BID 11/25/22 06/18/23 Allergies Allergy/AdvReac Type Severity Reaction Status Date / Time morphine Allergy Intermediate Skin Rash Verified 06/18/23 20:02 latex Allergy Mild Skin Rash Verified 06/18/23 20:02 General Stated Complaint: GenMedical [place]: 3 Review of Systems All systems reviewed & are unremarkable except as noted in HPI and below Constitutional Constitutional: Denies chills, Denies fever(s), Reports malaise and Denies weakness Cardiovascular Cardiovascular: Denies chest pain and Denies dyspnea Respiratory Respiratory: Denies cough and Denies dyspnea Gastrointestinal Gastrointestinal: Denies abdominal pain and Denies vomiting Neurologic Neurologic: Denies weakness Exam Const General: no acute distress Orientation: alert [facility] Head: normal to inspection Ears: external ears normal General nose exam: external nose normal Mouth: moist mucous membranes Eyes Pupils: dilated bilaterally Resp Effort & Inspection: normal respiratory effort and able to speak in complete sentences Auscultation: clear to auscultation bilaterally Cardio Rate: regular rate GI Palpation: soft and nontender Skin General skin exam: no rashes or lesions noted Neuro General: patient alert and patient oriented x3 Extrem General: normal to inspection Psych Mental Status: mental status grossly normal Course Vital Signs Vital signs: Vital Signs Temperature 36.4 C 05/28/24 19:56 Pulse 87 05/28/24 19:56 Respiratory Rate 05/28/24 19:56 Blood Pressure 106/52 L 05/28/24 19:56 Pulse Oximetry 99 05/28/24 19:56 Temperature 36.4 C 05/28/24 19:56 Temperature Source Temporal Artery Scan 05/28/24 19:56 Pulse 87 05/28/24 19:56 Respiratory Rate 18 05/28/24 20:03 Respiratory Effort Normal 05/28/24 20:03 Respiratory Depth Normal 05/28/24 20:03 Respiratory Pattern Normal 05/28/24 20:03 Blood Pressure 106/52 L 05/28/24 19:56 Blood Pressure Position Supine 05/28/24 19:56 Pulse Oximetry 99 05/28/24 19:56 Oxygen Delivery Method Room Air 05/28/24 19:56 Oxygen Flow Rate 0 05/28/24 19:56 Medical Decision Making 43-year-old female with a history of prior CVA with right-sided deficits anxiety, who comes in with EMS with complaints of fatigue and not acting herself. Patient is alert and will only answer 1-2 word questions for most questions. She says she was fall sleep and her family was not letting her fall asleep. She denies any drug use, no fevers, no chest pain, abdominal pain. She moves all extremities well. Both of her pupils are dilated. When asked if she is taking any drugs she denies this. Given her complaints of fatigue we will check CBC, CMP to evaluate for anemia and electrolyte abnormalities. Also obtain CT head though I doubt entities such as CVA or hemorrhage based on her main complaint is feeling fatigued. I will also check a urine drug screen given her pupil dilation. Patient feeling less tired and fatigued. Opening her eyes easier and answering questions more appropriately. Workup thus far is negative, pending UA. Imaging negative for acute findings Patient now ambulating at her baseline per the and is awake and talking, she does have some nausea but has no abdominal tenderness. She is requesting discharge which I feel is reasonable given reassuring workup and she is now ambulating at her baseline and is oriented x 4. She will follow-up with her PCP if not improving and return precautions given she has no urinary symptoms so UA was canceled Differential Diagnosis Differential Diagnosis: Anemia, electrolyte abnormality, overdose Lab Data Lab results reviewed: Yes I reviewed the patient's lab results. ECG Data Attestation: I personally reviewed and interpreted this ECG (s) as follows: Prior ECG tracings: available for review Interpretation: sinus tch, rate of 114 pr 177 no stemi Quality:SDOH Health Related Social Needs: No Data to Display PFSH All Active Problems (Updated 05/28/24 @ 23:36 by Billy Medina MD) Altered mental status (Acute) Fatigue (Acute) Basal cell carcinoma (Acute) Encounter for immunization (Acute) Thickened endometrium (Acute) DUB (dysfunctional uterine bleeding) (Acute) Chest pain in adult (Acute) Abnormal Pap smear of cervix (Acute) BMI 50.0-59.9, adult (Acute 11/10/15) Left-sided cerebrovascular accident (CVA) (Acute 06/25/16) 10d s/p RCD. L sided CVA with R sided hemiparesis. Uses cane to walk. R Hand and forearm not functioning. Medical History Headache Seasonal allergies History of iron deficiency Sleep apnea Anxiety and depression Vitamin D deficiency History of CVA (cerebrovascular accident) Elevated blood-pressure reading, without diagnosis of hypertension History of abnormal cervical Pap smear Urinary incontinence Tinea corporis Muscle spasm of right shoulder Flaccid hemiplegia affecting right dominant side Fatigue Alkaline phosphatase raised Menorrhagia Obstructive sleep apnea Cholelithiasis Morbid obesity Skin lesion Cerebrovascular accident (CVA) (06/25/16) L sided brain infarct. 2w PP from RCD. R hemiplegia. Previous section Enlarged thyroid Family history of breast cancer Hemiplegia Radicular syndrome of lower limbs BMI 45.0-49.9, adult 12/2013 BMI 47 Surgical History Ligation of fallopian tube (06/10/16) at time of RC/S. [facility]. section PCD [facility]. RC/S with BTL. 06/10/16. Anny Perez [facility]. Social History Smoking/Tobacco Use Status: Never Smoking risk assessment performed?: Yes Alcohol Intake: never Drug use: Never Do you feel safe at home: Yes Do you feel safe in your relationship?: Yes
[2024-05-28 20:18] VITALS: BP 116/85; PULSE 88; RESP 19; TEMP 36.6; O2SAT 100
[2024-05-28 20:26] LABS: BE (Venous) 2 mmol/L (-2-3); HCO3 (Venous) 27 mmol/L (23-28); O2 Sat (Venous) 62 %; TCO2 (Venous) 25 mmol/L (24-29); pCO2 (Venous) 49 mmHg (41-51); pH (Venous) 7.36 (7.31-7.41); pO2 (Venous) 33 mmHg
[2024-05-28 20:29] LABS: Abs Immature Grans 0.04 10^3/uL (0.0-0.06); Absolute Basophil Count 0.05 10^3/uL (0.0-0.2); Absolute Eosinophil Count 0.11 10^3/uL (0.0-0.7); Absolute Lymphocyte Count 1.72 10^3/uL (1.2-3.4); Absolute Monocyte Count 0.59 10^3/uL (0.1-0.8); Basophils % 0.4 %; Eosinophils % 0.9 %; HCT 44.1 % (36.0-46.0); HGB 14.3 g/dL (11.2-15.7); Immature Grans % 0.3 %; Lymphocytes % 14.6 %; MCH 30.6 pg (27.0-33.0); MCHC 32.4 % (32.0-36.0); MCV 94 fL (80-95); MPV 10.1 fL (8.0-11.0); Neutrophils % 78.8 %; Platelet Count 265 10^3/uL (130-400); RBC 4.67 10^6/uL (3.93-5.22); RDW 13.9 % (11.7-14.6); RDW-SD 48.5 fL; WBC 11.75 10^3/uL (4.4-10.8)
[2024-05-28 20:31] LABS: Absolute Neutrophil Count 9.26 10^3/uL (1.2-6.7)
[2024-05-28 20:53] LABS: ALT 22 U/L (14-59); AST 8 U/L (15-37); Albumin 3.8 g/dL (3.4-5.0); Alkaline Phosphatase 129 U/L (46-116); Anion Gap 5.7 mmol/L (3-11); BUN 21 mg/dL (7-18); Bilirubin, Total 0.43 mg/dL (0.2-1.0); CO2 29.3 mmol/L (21.0-32.0); CREATININE 1.1 mg/dL (0.55-1.02); Calcium 9.6 mg/dL (8.5-10.1); Chloride 102 mmol/L (98-107); Estimated GFR 63.94 (mL/min/1.73m2); Glucose 122 mg/dL (74-106); Potassium 4.4 mmol/L (3.5-5.1); Sodium 137 mmol/L (136-145); TSH (W/Ref FT4) 2.05 uIU/mL (0.36-3.74); Total Protein 8.4 g/dL (6.4-8.2)
[2024-05-28 20:59] LABS: Ammonia < 10 umol/L (11-32)
[2024-05-28 21:07] LABS: ETHANOL BLOOD < 3.0 mg/dL (<10)
[2024-05-28 21:18] LABS: Procalcitonin < 0.10 ng/mL
[2024-05-28 21:24] LABS: Salicylate < 2.8 mg/dL (<2.8)
[2024-05-28 21:26] LABS: Acetaminophen < 2 ug/mL (10-30)
--- NOTE | 2024-05-28 21:50 | DI.RAD_ITS ---
Exam(s) XR CHEST 2V PA LATERAL EXAM: XR CHEST 2V PA LATERAL CLINICAL HISTORY: ?aspiration TECHNIQUE: 2D digital imaging was performed of the chest. Three images were obtained. PA and later al views were obtained. COMPARISON: CR CHEST ONE VIEW IN RAD DEPT from 06/25/2016 FINDINGS: Examination limited by patient body habitus and patient motion MEDIASTINUM: Normal. HEART: Normal. PULMONARY VASCULATURE: Normal. LUNGS: No focal consolidating infiltrates. PLEURAL SPACE: No pleural effusion or pneumothorax. BONE:Within normal limits for the patient's age. OTHER FINDINGS:Normal. IMPRESSION: Within the limits of the examination, no acute pulmonary findings. DATA REPOSITORY: RADIATION DOSE DELIVERED:
--- NOTE | 2024-05-28 21:50 | DI.CT_ITS ---
Exam(s) CT HEAD WO EXAM: CT HEAD WO CLINICAL HISTORY: altered mental status. TECHNIQUE: Imaging Protocol: Axial computed tomography images with coronal and sagittal reformatted images were created and reviewed COMPARISON: No exams were available for comparison FINDINGS: Ventricles and Extra axial spaces: Normal in size and morphology for the patient's age. Hemorrhage: None. Cerebral parenchyma: There is an old left MCA distribution infarct. There is no acute midline shift. No evidence of an acute territorial infarct. Midline shift: None. Brainstem/Cerebellum: Normal. Calvarium: Normal. Visualized Paranasal sinuses/Mastoids: Clear. Soft Tissues: Unremarkable. IMPRESSION: No acute intracranial process. RADIATION DOSE DELIVERED: 958.17mGy.cm Total DLP DATA REPOSITORY: All CT scans at this facility are submitted to the National Radiology Data Registry (NRDR) Dose Index Registry (DIR) with the [employer] (ACR). RADIATION OPTIMIZATION: All CT scans at this facility use at least one of these dose optimization te chniques: automated exposure control; mA and/or kV adjustment per patient size (includes targeted exa ms where dose is matched to clinical indication); or iterative reconstruction.
--- NOTE | 2024-05-28 22:15 | DI.VRAD_ITS ---
PROCEDURE INFORMATION: Exam: CT Head Without Contrast Exam date and time: 05/28/2024 9:36 PM Age: 43 years old Clinical indication: Altered mental status/memory loss; Other: AMS, not specified; Known previous stroke. TECHNIQUE: Imaging protocol: Computed tomography of the head without contrast. COMPARISON: No relevant prior studies available. FINDINGS: Brain: A confluence area of encephalomalacia is identified involving the left temporal lobe and parietal lobe consistent with a prior infarct. No acute hemorrhage, edema or midline shift. Cerebral ventricles: Ex vacuo dilatation of the left lateral ventricle. Paranasal sinuses: Visualized sinuses are unremarkable. No fluid levels. Mastoid air cells: Visualized mastoid air cells are well aerated. Bones: Unremarkable. No acute fracture. Soft tissues: Unremarkable. IMPRESSION: 1. No acute intracranial abnormality is identified. 2. Old infarct involving the left MCA territory as detailed above. Dictated and Authenticated by: Dk Keith MD. Orderin Adam Cervantes MD
--- NOTE | 2024-05-28 22:17 | DI.VRAD_ITS ---
PROCEDURE INFORMATION: Exam: XR Chest Exam date and time: 05/28/2024 9:32 PM Age: 43 years old Clinical indication: Other: ? Aspiration TECHNIQUE: Imaging protocol: Radiologic exam of the chest. Views: 2 views. COMPARISON: CT CHEST PE CTA 06/18/2023 9:44 PM FINDINGS: Lungs: There is a poor inspiratory effort which accentuates the interstitial markings. Bilateral lower lobe subsegmental atelectatic changes are noted. Pleural spaces: Unremarkable. No pleural effusion. No pneumothorax. Heart/Mediastinum: Heart is enlarged. Bones/joints: Unremarkable. IMPRESSION: Limited but essentially unremarkable one view chest x-ray. Dictated and Authenticated by: Dk Keith MD. Orderin Adam Cervantes MD
[2024-05-29] VITALS: BP 145/78; PULSE 78; RESP 16; O2SAT 97
== END 2024-05-29 | disposition home or self-care (01) ==
PROVIDERS: Emergency Provider Emergency Medicine; PCP Family Medicine
DX: R53.83 Other fatigue (principal); R41.82 Altered mental status, unspecified
CPT/HCPCS: 36415; 80053; 82805; 84145; 87637; 93005; 99285; 70450; 71046; 80320; 80329; 82140; 83735; 84443; 85025; 93010; 99284

== ENCOUNTER 2024-10-17 13:02 | Outpatient (REF) | payer MEDICARE, MEDICAID, SELFPAY ==
--- NOTE | 2024-10-17 13:00 | PAPFT_PTH ---
PATIENT: Birdie Cintron LOC: [facility] U#:[id number] AGE/SX: 43/F ROOM: RE10/17/[address]: Pat Cohen DO : 1980 BED: DIS: 10/17/2024 SPEC #: [id number] RECD: 10/17/24 17:39 STATUS: FOREIGN REQ #: [id number] BETO: 10/17/24 13:[address]: Pat Cohen DEPT: [facility] Cytology RECD BY: Sarah Cortes ENTERED: 10/17/24 17:40 SP TYPE: PAPFT OTHR DR: Marce Rankin Tissues: 1 - CX/ENDOCX FOR PAP SMEARS Procedures: PAP THIN PREP/[facility] Screening HPV DNA PROBE Comments: [id number] (HPV 16 & 18/45)
== END 2024-10-17 13:03 | disposition home or self-care (01) ==
LOC: LBN 13:02
PROVIDERS: PCP Family Medicine; Visit Provider Obstetrics & Gynecology
DX: Z12.4 Encounter for screening for malignant neoplasm of cervix (principal); Z11.51 Encounter for screening for human papillomavirus (HPV)
CPT/HCPCS: 88142; 87624

== ENCOUNTER 2024-11-29 01:32 | Outpatient (CLI) | payer MEDICARE, MEDICAID, SELFPAY ==
--- NOTE | 2024-11-29 | DI.MAMMO_ITS ---
Exam(s) MG MAMMO SCREENING 60 MIN DUR EXAM: MG MAMMO SCREENING 60 MIN DUR CLINICAL HISTORY: Screening, general adult health examination wo abnl findings-Z00.00. TECHNIQUE: Bilateral full field digital CC and MLO mammographic images were obtained with 3D tomosynthesis and utilizing computer aided detection (CAD). COMPARISON: Prior mammograms were reviewed. Most recent was 2016. FINDINGS: No new right breast findings There is a nodular density in the lateral aspect of the left breast measuring approximately 7 x 4 mm and located approximately 18 cm in from the nipple. This was not evident on the prior mammogram of 2016. Spot compression recommended There are no malignant-appearing microcalcification groups is region or elsewhere in either breast. There is no significant architectural distortion nor skin thickening-retraction. IMPRESSION: 1. No radiographic evidence of malignancy in the right breast. 2. There is a 7 x 4 millimeter nodular density laterally in left breast which was not evident on the prior mammogram of 2016. There are unfortunately no interval mammograms since 2016. Spot compression view and ultrasound recommended. BI-RADS Category 0 - Incomplete: Need additional imaging evaluation Breast Density - Category B - There are scattered areas of fibroglandular density. Breast density Category C or D implies that the patient has dense breast tissue. Dense breast tissue can make it harder to find cancer on a mammogram. Dense breast tissue is also associated with an increased risk of breast cancer. This information about the result of the mammogram report was provided to the patient to raise their awareness. Use this report when you speak with the patient about their risks for breast cancer, which includes their family history. At that time, you may recommend additional screening tests (Ultrasound or MRI) as these tests may add significant information. A negative radiographic report should not delay biopsy if a dominant or clinically suspicious mass is present. Up to ten percent of cancers are not identified on mammography. A negative report may reinforce clinical impression. Adenosis and dense breasts may obscure an underlying neoplasm. False positive reports average 6 to 10%. Patient will receive a letter notifying them of these results.
== END 2024-11-29 01:52 ==
PROVIDERS: PCP Family Medicine; Visit Provider Family Medicine
DX: Z12.31 Encounter for screening mammogram for malignant neoplasm of breast (principal); R92.323 Mammographic fibroglandular density, bilateral breasts
CPT/HCPCS: 77063; 77067

== ENCOUNTER 2024-12-04 01:44 | Outpatient (CLI) | payer MEDICARE, MEDICAID, SELFPAY ==
--- NOTE | 2024-12-04 | DI.US_ITS ---
Exam(s) MG MAMMO SCREEN CALL BACK UNI US BREAST LT LIMITED EXAM: MG MAMMO SCREEN CALL BACK UNI and U/S breast LT limited CLINICAL HISTORY: 7 x 4 mm nodular density 18 cm from nipple, Lt breast. TECHNIQUE: Craniocaudal and mediolateral oblique Full Field Digital Mammography views of the left breast with Computer Aided Diagnosis followed by Tomosynthesis and limited left breast ultrasound. COMPARISON: Comparison is made with prior examinations. FINDINGS: Mammography/Tomosynthesis: Masses/Architectural Distortion: There is again seen a 7 mm nodule in the outer left breast on the craniocaudad view. There are no areas of architectural distortion present. Microcalcifictions: No suspicious pleomorphic-type are seen. Skin Thickening/Nipple Retraction: None. Limited left breast US: Echotexture: Normal appearance of the glandular tissue. Shadowing: No suspicious foci. Cyst: There is a well-circumscribed ovoid hypoechoic subcutaneous lesion measuring 7 mm at the 1 o'clock position of the left breast 13 cm from the nipple. This would correspond to the mammographic abnormality. It is subcutaneous in origin. There also appears to be a duct stretching to the skin surface. The finding is most suggestive of a sebaceous cyst. Solid lesions: None seen. Ductal dilation: None. IMPRESSION: 1. No evidence of malignancy is noted. 2. Unless there is more urgent need, follow-up screening mammography is recommended, as per [employer] guidelines. 3. The findings were discussed with the patient on the date of the examination. BI-RADS Category 2 - Benign Findings Breast Density - Category A - The breast are almost entirely fatty. Breast density Category C or D implies that the patient has dense breast tissue. Dense breast tissue can make it harder to find cancer on a mammogram. Dense breast tissue is also associated with an increased risk of breast cancer. This information about the result of the mammogram report was provided to the patient to raise their awareness. Use this report when you speak with the patient about their risks for breast cancer, which includes their family history. At that time, you may recommend additional screening tests (Ultrasound or MRI) as these tests may add significant information. A negative radiographic report should not delay biopsy if a dominant or clinically suspicious mass is present. Up to ten percent of cancers are not identified on mammography. A negative report may reinforce clinical impression. Adenosis and dense breasts may obscure an underlying neoplasm. False positive reports average 6 to 10%. Patient will receive a letter notifying them of these results.
== END 2024-12-04 02:04 ==
LOC: DI 01:45
PROVIDERS: PCP Family Medicine; Visit Provider Family Medicine
DX: Z12.31 Encounter for screening mammogram for malignant neoplasm of breast (principal); N63.22 Unspecified lump in the left breast, upper inner quadrant
CPT/HCPCS: 76642; 77063; 77067